=== PATIENT | male | born 1965 | race Caucasian/White ===

== ENCOUNTER 2022-03-29 09:30 | Outpatient (RCR) | payer BC, SELFPAY ==
--- NOTE | 2022-03-21 18:02 | HP.PTEVAL_ITS ---
Patient's Visit Information [address] is a 56 year old M referred to Physical Therapy by MALLY Fuentes with a diagnosis of R ankle sprain. Date of Evaluation: 03/21/22 Physical Therapist: Rosalio Aquino, PT, ATC - Visit Plan Frequency: 2-3x /Week Duration: 4-6 Weeks Plan: R ankle mobilizations, stretching anbd strengthening, balance and proprio, bike, and HEP - Subjective Pt reports he jumped out of the back of his truck and sprained his R ankle 3 days ago. Pt reports he jumped out onto a curb and inverted his ankle. Pt reports severe pain immediately. Pt reports he was unable to walk, but is doing much better today. Pt notes he has a lot of swelling abd discoloration present at this time. Pt reports since he had all the swelling, [facility] and received [facility] which revealed no fracture. 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 Pt reports he lives in a 2 story house, and has to negotiate the stairs one step at a time. Pt reports sleep difficulty at this time unless he takes pain meds. 3/10 pain while sitting here at rest, 7/10 pain at worst. - Pain R ankle Pain Intensity (Out of 10): 3 Pain Intensity Range: 7 - Objective Neuro: B LE sensation is WNL to light touch. B patellar reflex= 2/3. Girth at ankle: L ankle 57 cm, R ankle 60 cm. ROM: L ankle DF= 20, PF= 55; R ankle DF= 4, PF= 40. MMT: L ankle DF= 5, PF= 5, Ever= 5/5; R ankle DF= 4+/5, PF= 5/5, Ever= 3/5 - Balance/Special Test Scores Lower Extremity Functional Score: 29 - Goals Goal 1:: Decrease R ankle pain x 50% to aid with sleep Goal Time Frame: 4-6 Weeks Goal 2:: Increase R ankle DF ROM x 10 degrees to aid with restoring a more normalized gait pattern Goal Time Frame: 4-6 Weeks Goal 3:: Increase R ankle strength x 1 grade to aid with preventing future ankle sprains Goal Time Frame: 4-6 Weeks Goal 4:: I with HEP Goal Time Frame: 4-6 Weeks - Rehabilitation Potential Physical Therapy Diagnosis: Pt has R ankle pain, weakness, and limited ROM secondary to L ankle inversion ankle sprain Rehabilitation Potential: Good - Anticipated Interventions Patient/Client Instruction: Educate patient on: Condition, Plan of Care For the Purpose of:: To improve self management Therapeutic Exercise to Include: Strength training, Endurance training, Balance training, Flexibilty training, Gait and locomotor training, Passive ROM, Active ROM For the Purpose of:: To decrease pain, To increase ROM, To improve ability to perform ADL's IF ES: Yes Cryotherapy (ice pack, ice massage): Yes For the Purpose of:: To decrease pain Thank you for the opportunity to evaluate your patient. For Medicare and Medicare HMO plans, please review the plan of care and approve it. It will need to be FAXED BACK to us at [phone] for Medicare purposes. For Medicare only, by signing this I certify the plan of care. Please let me know if there are questions or concerns regarding this plan of care. Physician Signature: Date:
--- NOTE | 2022-07-11 17:10 | HP.PT.NRP ---
[address] was seen in my office for initial evaluation on 03/21/22. The following Plan of Care was established for this patient: Initial Frequency: 2-3x /Week Initial Duration: 4-6 Weeks Patient/Client Instruction: Educate patient on: Condition, Plan of Care For the Purpose of:: To improve self management Therapeutic Exercise to Include: Strength training, Endurance training, Balance training, Flexibilty training, Gait and locomotor training, Passive ROM, Active ROM For the Purpose of:: To decrease pain, To increase ROM, To improve ability to perform ADL's IF ES: Yes Cryotherapy (ice pack, ice massage): Yes For the Purpose of:: To decrease pain This patient was last seen in our office . Pertinent comments regarding their Physical therapy will appear below: Pt was treated for 3 PT visits for R ankle pain through the date of 03/29/22. Pt has not returned through todays date and is discontinued at this time. At this point I will be discontinuing this patient from physical therapy. I would be happy to see this patient again in the future if found appropriate by the physician. Thank you! Rosalio Aquino, PT, ATC Balance/Gait/Functional tests - Balance/Special Test Scores Lower Extremity Functional Score: 29
== END 2022-03-29 19:00 | disposition home or self-care (01) ==
LOC: PT 09:30
PROVIDERS: Referring Provider Physician Assistant; Visit Provider Physician Assistant
DX: S93.401D Sprain of unspecified ligament of right ankle, subsequent encounter (principal)
CPT/HCPCS: 97014; 97110; 97140; 97161; 97164; G0283

== ENCOUNTER 2023-12-22 07:33 | Day surgery (SDC) | payer BC, OTHER, SELFPAY ==
[2023-12-22] VITALS (7 sets, daily range): BP systolic 119–146; BP diastolic 81–95; PULSE 62–67; RESP 14–18; TEMP 36.2–36.7; O2SAT 96–100; BMI 27.5
--- NOTE | 2023-12-22 07:40 | PRE.ANES_ITS ---
ASA Classification* ASA Classification ASA Classification: 2 Assessment & Plan Anesthesia* Anesthesia Assessment Anesthesia Assessment: Discussed sedation and/or anesthesia options, risks, benefits, and alternatives with patient/parents/legal guardian/POA. Questions invited. The patient/parents/legal guardian/POA seems to understand and agrees to proceed with anesthesia plan. Reviewed the physical assessment, medical history, allergy history and patient home medications list prior to surgery/procedure/anesthetic and documented any changes. Performed airway and anesthesia risk assessments. 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 When Was Last Pacemaker Check QUESTION #4 FULL TEXT: You/Your Family Experience fever (hyperthermia) with Anesthesia Last Oral Intake Last Oral intake: Last Oral Intake NPO since Meds taken in AM with sips of water? Meds patient instructed to take am of surgery PONV PONV - wood milling machine hand: PONV - wood milling machine hand Female No 12/17/23 11:16 HX of Motion Sickness No 12/17/23 11:16 HX of N/V After Surgery No 12/17/23 11:16 Non-Smoker Yes 12/17/23 11:16 Duration of Surgery greater No 12/17/23 11:16 than 60 minutes Number of Risk Factors 1 12/17/23 11:16 PONV Score Low Risk 12/17/23 11:16 Height & Weight Height & Weight: Anesthesia: Height & Weight Height 5 ft 10 in 11/25/23 09:53 Respiratory Assessment Respiratory Assessment - wood milling machine hand: Respiratory Tract Infection Hx - wood milling machine hand Hx Respiratory Tract Infection No 12/17/23 11:16 STOP Sleep Apnea STOP Sleep Apnea - wood milling machine hand: STOP Sleep Apnea - wood milling machine hand Hx Hypertension No 12/17/23 11:16 Hx Sleep Apnea No 12/17/23 11:16 CPAP BIPAP Do you snore loudly (louder No 12/17/23 11:16 than talking or can be heard Do you often feel tired/ No 12/17/23 11:16 fatigued/ sleepy during daytime? Has anyone observed you stop No 12/17/23 11:16 breathing during sleep? STOP Results Negative 12/17/23 11:16 QUESTION #5 FULL TEXT : Do you snore loudly (louder than talking or can be heard through closed doors)? 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 Specify any problems Hx of Preganancy in last 3 N/A 12/17/23 11:16 Months Nurse Filling Out Transfusion VCHRISTIN 12/17/23 11:16 & Questions: Date: 12/17/23 12/17/23 11:16 Time: 11:17 12/17/23 11:16 Patient unable to answer at this time (ie. confused, unrespo /Reproduction History /Reproductive History - wood milling machine hand: /Reproductive Hx- wood milling machine hand Hx Now Gestational Age (in weeks): EDC: Hx Hx Para Hx Section SAB Active Medications Active Medications: Current Medications Generic Name Dose Route Start Last Admin Trade Name Freq PRN Reason Stop Dose Admin Lactated Ringer's 1,000 mls @ 15 mls/hr 12/22/23 07:45 IV .Q48H OZ PFSH Medical History Alcohol use Arthritis Injury of head and neck Blackout History of ulceration Former smoker Right ankle sprain Seasonal allergies Stomach ulcer Home Medications ?Medication ?Instructions ?Recorded ?Last Taken ?Type ascorbic acid (vitamin C) 500 mg 500 mg PO DAILY 10/23/23 Unknown History tablet kchvnmd-uhkmllsiiauyq-rtueyomt 250 1 tab PO Q4-6H PRN pain 10/23/23 Unknown History mg-250 mg-65 mg tablet (Excedrin Extra Strength) erollzhw-qcqdkueg-dimsw acid 400 1 tab PO DAILY 10/23/23 Unknown History mcg-vit K 20 mcg-lycop 300 mcg tablet (One-A-Day Men's Multivitamin) Allergy/AdvReac Type Severity Reaction Status Date / Time codeine Allergy Vomiting Verified 12/17/23 11:05 Environmental Allergies: Allergy Other Verified 12/17/23 11:05 Uncoded Family History Aunt Colon cancer Breast cancer Mother Diverticulitis Lung cancer Brother Diverticulitis Grandmother Brain cancer Uncle Prostate CA Other Cancer Surgical History Hx of oral surgery Social History household members: spouse current occupational status: employed Smoking Status: Former smoker alcohol intake: current alcohol intake frequency: a few times a month Alcohol type: beer substance use type: does not use Review of Systems (Anesthesia) ROS Narrative System reviewed and no additional complaints, except as documented.
[2023-12-22] MEDS: Lactated Ringers 1,000 ML 15 ML IV (07:58)
--- NOTE | 2023-12-22 08:01 | HP.PCM_ITS ---
[facility] - General General Date of Admission: 12/22/23 Date of Service: 12/22/23 Chief Complaint: Screening colonoscopy [facility] Narrative [address], is a 58 M who presents today for screening colonoscopy. He has no significant past medical history. He is not take any medicines on a daily basis. He does not have any chest pain or shortness of breath. He has not had a colonoscopy before. [facility] Medical History Alcohol use Arthritis Injury of head and neck Blackout History of ulceration Former smoker Right ankle sprain Seasonal allergies Stomach ulcer Home Medications ?Medication ?Instructions ?Recorded ?Last Taken ?Type ascorbic acid (vitamin C) 500 mg 500 mg PO DAILY 10/23/23 Unknown History tablet dijfotp-wwbugwmasxynf-vvomiljt 250 1 tab PO Q4-6H PRN pain 10/23/23 Unknown History mg-250 mg-65 mg tablet (Excedrin Extra Strength) aruqaipv-lejaxbdy-tsmry acid 400 1 tab PO DAILY 10/23/23 Unknown History mcg-vit K 20 mcg-lycop 300 mcg tablet (One-A-Day Men's Multivitamin) Allergy/AdvReac Type Severity Reaction Status Date / Time codeine Allergy Vomiting Verified 12/22/23 07:56 Environmental Allergies: Allergy Other Verified 12/22/23 07:56 Uncoded Family History Aunt Colon cancer Breast cancer Mother Diverticulitis Lung cancer Brother Diverticulitis Grandmother Brain cancer Uncle Prostate CA Other Cancer Surgical History Hx of oral surgery Social History household members: spouse current occupational status: employed Smoking Status: Former smoker alcohol intake: current alcohol intake frequency: a few times a month Alcohol type: beer substance use type: does not use ROS Review of Systems ROS Unobtainable: other Constitutional Constitutional: Denies fatigue, fever(s), poor appetite, weight gain or weight loss ENT HEENT: Denies mouth lesions Cardiovascular Cardiovascular: Denies abdominal bloating, abdominal edema or abdominal pain Respiratory/Chest Respiratory/Chest: Denies change in mental status, change in phlegm color, chest congestion or chest tightness Gastrointestinal Gastrointestinal: Denies belching, bloating, change in bowel habits, change in stool character, chewing difficulty, coffee ground emesis, constipation, cramping, diarrhea, dyspepsia, dysphagia, early satiety, excessive flatus, fecal incontinence, heartburn, hematemesis, hematochezia, hemorrhoids, loose stools, melena, nausea, odynophagia, rectal bleeding, tenesmus, vomiting or weight changes Genitourinary Genitourinary: Denies abdominal discomfort, burning urination or itching Musculoskeletal Musculoskeletal: Reports as per HPI; Denies muscle weakness or myalgias Integumentary Integumentary: Denies jaundice Neurologic Neurologic: Denies lack of coordination or weakness Psychiatric Psychiatric: Denies confusion, depression, memory loss, mood swings, paranoia or suicidal ideation Endocrine Endocrinology: Denies systems reviewed and no addt'l complaints, except as documented Hematologic/Lymphatic Hematologic/Lymphatic: Denies anemia, easy bleeding, easy bruising or lymphadenopathy Allergic/Immunologic Allergic/Immunologic: Denies systems reviewed and no addt'l complaints, except as documented Physical Exam Const alert General Appearance: cooperative Orientation / Consciousness: oriented to person HEENT hearing grossly normal bilaterally Head and Scalp: normal to inspection Face and Sinus: face symmetric Nose: external nose normal Mouth: oral and palatal mucosa normal Eyes conjunctivae normal General Eye: normal appearance of both eyes Neck full ROM General: normal visual inspection Lymph Lymphatic: no lymphadenopathy noted Chest inspection of chest normal and palpation of chest normal Chest: symmetrical chest wall rise Resp normal respiratory effort Effort and Inspection: able to speak in complete sentences Cardio regular rate GI non-distended Percussion: normal to percussion Rectal Exam: deferred Neuro Speech: speech normal Gait (Neuro): normal gait Assessment & Plan Assessment/Plan (1) Encounter for screening for malignant neoplasm of colon: PLAN: Who was explained alternatives, risk, benefits include not withstanding bleeding, infection, sepsis, perforation, need for more charge and . He will have an ASA of 3.
--- NOTE | 2023-12-22 08:30 | COLBX_PTH ---
PATIENT: [address]OR[address]RE[address] LOC: EN U#:[id number] AGE/SX: 58/M ROOM: RE12/22/[address]: Dr. Allan Faust DO : 1965 BED: DIS: 12/22/2023 SPEC #: [id number] RECD: 12/22/23 10:36 STATUS: LASHA REFrancy #: [id number] FER: 12/22/23 08:[address]: Allan Faust DEPT: SURGICAL PATHOLOGY RECD BY: Kelsey Donato ENTERED: 12/22/23 12:23 SP TYPE: COLON BX IRINEO DR: Dr. Peter Burris MD Tissues: A - COLON BIOPSY B - Sigmoid colon biopsy Procedures: Surgery Specimen Level IV HEADER OPERATION: Colonoscopy PRE-OP DIAGNOSIS: Encounter for screening for malignant neoplasm of colon TISSUE SUBMITTED: A- Hepatic flexure biopsy, B- Sigmoid colon biopsy MICROSCOPIC DIAGNOSIS A. Hepatic flexure, biopsy: Tubular adenoma. B. Sigmoid colon, biopsy: Hyperplastic polyp. TENZIN. 12/23/2023 MICROSCOPIC DESCRIPTION Slides are reviewed. GROSS DESCRIPTION A. Received in fixative is one container labeled with the patient's name and designated Hepatic flexure biopsy. The specimen consists of one irregular fragment of light wood soft tissue that measures 0.3 x 0.3 x 0.1 cm. The specimen is totally submitted in one cassette. B. Received in fixative is one container labeled with the patient's name and designated Sigmoid colon biopsy. The specimen consists of one irregular fragment of light wood soft tissue that measures 0.4 x 0.3 x 0.1 cm. The specimen is totally submitted in one cassette. 12/22/2023 TC:1 CPT:01541p9
--- NOTE | 2023-12-22 09:00 | OP.COLON_ITS ---
Patient Name: Kb Ponce Procedure Date: 12/22/2023 8:30 AM Date of : 1965 Age: 58 Procedure: Colonoscopy Indications: Screening for colorectal malignant neoplasm Providers: Allan Faust DO Referring MD: Peter Burris MD Medicines: Monitored Anesthesia Care Patient Profile: This is a 58 year old male. Refer to note in patient chart for documentation of history and physical. Last Colonoscopy: none. The patient's first colonoscopy is today. Complications: No immediate complications. Procedure: Pre-Anesthesia Assessment: - Prior to the procedure, a History and Physical was performed, and patient medications and allergies were reviewed. The patient is competent. The risks and benefits of the procedure and the sedation options and risks were discussed with the patient. All questions were answered and informed consent was obtained. Patient identification and proposed procedure were verified by the physician in the pre-procedure area. Mental Status Examination: alert and oriented. Airway Examination: normal oropharyngeal airway and neck mobility. Respiratory Examination: clear to auscultation. CV Examination: normal. Prophylactic Antibiotics: The patient does not require prophylactic antibiotics. Prior Anticoagulants: The patient has taken no anticoagulant or antiplatelet agents except for NSAID medication. ASA Grade Assessment: II - A patient with mild systemic disease. After reviewing the risks and benefits, the patient was deemed in satisfactory condition to undergo the procedure. The anesthesia plan was to use monitored anesthesia care (MAC). Immediately prior to administration of medications, the patient was re-assessed for adequacy to receive sedatives. The heart rate, respiratory rate, oxygen saturations, blood pressure, adequacy of pulmonary ventilation, and response to care were monitored throughout the procedure. The physical status of the patient was re-assessed after the procedure. After I obtained informed consent, the scope was passed under direct vision. Throughout the procedure, the patient's blood pressure, pulse, and oxygen saturations were monitored continuously. The Colonoscope was introduced through the anus and advanced to the cecum, identified by appendiceal orifice and ileocecal valve. The colonoscopy was performed without difficulty. The patient tolerated the procedure well. The quality of the bowel preparation was adequate. Scope In: 8:43:28 AM Scope Withdrawal Time 0 hours 8 minutes 22 seconds Scope Out: 8:54:16 AM Total Procedure Duration Time 0 hours 10 minutes 48 seconds Findings: The perianal and digital rectal examinations were normal. Two sessile polyps were found in the sigmoid colon and hepatic flexure. The polyps were 5 mm in size. These polyps were removed with a jumbo cold forceps. Resection and retrieval were complete. Verification of patient identification for the specimen was done. Estimated blood loss was minimal. Multiple small-mouthed diverticula were found in the recto-sigmoid colon, sigmoid colon and descending colon. The exam was otherwise without abnormality on direct and retroflexion views. Impression: - Two 5 mm polyps in the sigmoid colon and at the hepatic flexure, removed with a jumbo cold forceps. Resected and retrieved. - Diverticulosis in the recto-sigmoid colon, in the sigmoid colon and in the descending colon. - The examination was otherwise normal on direct and retroflexion views. Recommendation: - Discharge patient to home. - Resume previous diet. - Continue present medications. - Await pathology results. - Repeat colonoscopy in 5 years for surveillance. Procedure Code(s): --- Professional --- 03974, Colonoscopy, flexible; with biopsy, single or multiple CPT copyright 2021 [employer]. All rights reserved. The codes documented in this report are preliminary and upon direct sales representative review may be revised to meet current compliance requirements. Allan Faust DO 12/22/2023 8:59:53 AM This report has been signed electronically. Number of Addenda: 0 Note Initiated On: 12/22/2023 8:30 AM
--- NOTE | 2023-12-22 09:01 | OP.CCLET_ITS ---
12/22/2023 Peter Burris MD [address] [place] [address] [place] [address] Re : Colonoscopy procedure for Kb Grangerprachi Dear Dr. Burris This procedure was performed on Friday, December 22, 2023. My impressions and recommendations are as follows: Impressions : - Two 5 mm polyps in the sigmoid colon and at the hepatic flexure, removed with a jumbo cold forceps. Resected and retrieved. - Diverticulosis in the recto-sigmoid colon, in the sigmoid colon and in the descending colon. - The examination was otherwise normal on direct and retroflexion views. Recommendations : - Discharge patient to home. - Resume previous diet. - Continue present medications. - Await pathology results. - Repeat colonoscopy in 5 years for surveillance. My findings are described in the full procedure note, which is enclosed. If I can be of further assistance, please feel free to contact me at . Sincerely, Allan Faust, 12/22/2023 8:59:53 AM This report has been signed electronically.
--- NOTE | 2023-12-22 09:03 | PCM.POST.ANE ---
Anesthesia: Postop Eval I Current Vital Signs Temperature: 97.3 F Pulse Rate: 67 Blood Pressure: 120/81 Respiratory Rate: 14 Pulse Ox: 97 Oxygen Delivery Method: Room Air Assessment Airway patent: Yes Spontaneous unlabored respirations: Yes Mental status: Asleep nausea: No Vomiting: No Anesthesia Complication: No Fluid Hydration Crystalloid volume administer (ml): 600 Total IV fluid infused: 600 Progress Note Anesthesia document: Postop Eval 1 completed: Yes
--- NOTE | 2023-12-22 09:22 | PCM.POSTANE2 ---
Anesthesia Postop Eval I Sum Postop Eval Completion status Anesthesia document: Postop Eval 1 completed: Yes Anesthesia Postop Eval I Summary Anesthesia Postop Eval I Summary: Anesthesia Postop Eval I: Assessment Summary Airway patent Yes 12/22/23 09:04 [email or web address] Spontaneous unlabored Yes 12/22/23 09:04 [email or web address] respirations Mental status Asleep 12/22/23 09:04 [email or web address] nausea No 12/22/23 09:04 [email or web address] Vomiting No 12/22/23 09:04 [email or web address] Anesthesia Postop Eval I: Fluid Summary Crystalloid volume administer 600 12/22/23 09:04 [email or web address] (ml) Colloids volume administered ( ml) Blood Product volume administered (ml) Total IV fluid infused 600 12/22/23 09:04 [email or web address] Anesthesia Postop Eval I: Summary Notes Anesthesia Complication No 12/22/23 09:04 [email or web address] Anesthesia Complication Comment: Post-operative progress note Anesthesia: Postop Eval II Evaluation Mental status: Awake Pain Level: 0 nausea: No Vomiting: No
== END 2023-12-22 10:13 | disposition home or self-care (01) ==
LOC: EN 07:35 → AC 07:37
PROVIDERS: PCP Internal Medicine; Referring Provider Internal Medicine; Visit Provider Internal Medicine Gastroenterology
PROC: 0DJD8ZZ Inspection of Lower Intestinal Tract, Via Natural or Artificial Opening Endoscopic (ICD-10-PCS; CPT 45378; principal; 2023-12-22 08:25)
DX: Z12.11 Encounter for screening for malignant neoplasm of colon (principal); Z80.0 Family history of malignant neoplasm of digestive organs; Z87.891 Personal history of nicotine dependence; K57.30 Diverticulosis of large intestine without perforation or abscess without bleeding; D12.3 Benign neoplasm of transverse colon
CPT/HCPCS: 45380; 88305; J7120; J2405

== ENCOUNTER → 2024-01-19 | Outpatient (CLI) | payer BC, OTHER, SELFPAY ==
[2024-01-19 15:27] LABS: PSA,Total - Annual Screen 2.86 ng/mL (0.00-4.00)
== END | disposition home or self-care (01) ==
LOC: LAB 14:32
PROVIDERS: PCP Internal Medicine; Referring Provider Urology; Visit Provider Urology
DX: Z12.5 Encounter for screening for malignant neoplasm of prostate (principal)
CPT/HCPCS: 36415; 84153; G0103

== ENCOUNTER → 2024-01-30 | Outpatient (CLI) | payer BC, OTHER, SELFPAY ==
[2024-01-30 15:06] LABS: Absolute Lymphocyte Count 1.27 X10^3/uL (0.83-4.51); Absolute Neutrophil Count 4.3 X10^3/uL (2.0-7.7); Basophil# 0.03 X10^3/uL; Basophil% 0.5 % (0-1); Eosinophil# 0.05 X10^3/uL; Eosinophils% 0.8 % (0-5); Hematocrit 48.7 % (40-54); Hemoglobin 16.9 g/dL (13.0-16.5); Lymphocyte # 1.27 X10^3/ul (0.83-4.51); Lymphocyte % 20.8 % (19-41); Mean Corp Hgb Conc 34.7 g/dL (32-36); Mean Corpuscular Hgb 29.1 pg (27.0-32.0); Mean Platelet Vol. 9.4 fl (6.2-12.0); Monocyte# 0.47 X10^3/uL; Monocyte% 7.7 % (0-10); NRBC Flagged by Analyzer 0 % (0-5); Neutrophil # 4.27 X10^3/uL (2.7-7.7); Neutrophil % 69.7 % (47-70); Platelet Count 213 K/mm3 (150-450); RBC Distribution Width CV 12.4 % (11.6-14.6); White Blood Count 6.1 K/mm3 (4.4-11.0)
[2024-01-30 15:26] LABS: ALB/GLOB Ratio 1.2 RATIO (0.9-2.4); AST(SGOT) 26 U/L (15-37); Alanine Aminotransfer ALT/SGPT 49 U/L (16-61); Albumin, Serum 4.2 g/dL (3.2-5.0); Alkaline Phosphatase 62 U/L (45-117); Anion Gap 3 (5-15); BUN 11 mg/dL (7-18); BUN/Creat Ratio 11.6 RATIO (10-20); Calcium,Total 9.4 mg/dL (8.5-10.1); Chloride 104 mmol/L (98-107); Cholesterol 148 mg/dL (200); Creatinine, Serum 0.95 mg/dL (0.70-1.30); EST Glomerular Filtration Rate 87 mL/min (>60); Est Glom Filt Rate - Afr Amer 105 mL/min (>60); Globulin 3.5 g/dL (2.2-4.2); Glucose 101 mg/dL (74-106); High Density Lipoprotein 57 mg/dL; Potassium 4.8 mmol/L (3.5-5.1); Protein, Total 7.7 g/dL (6.4-8.2); Sodium Level 137 mmol/L (136-145); Triglycerides 61 mg/dL; Very Low Density Lipoprotein 12 mg/dL (5-40)
== END | disposition home or self-care (01) ==
LOC: BIMLAB 13:42
PROVIDERS: PCP Internal Medicine; Referring Provider Internal Medicine; Visit Provider Internal Medicine
DX: Z00.00 Encounter for general adult medical examination without abnormal findings (principal)
CPT/HCPCS: 36415; 80053; 80061; 85025

== ENCOUNTER → 2025-01-14 | Outpatient (CLI) | payer BC, OTHER, SELFPAY ==
--- OUTSIDE RECORDS SUMMARY | 2025-01-14 12:35 | XMS RPT_ITS | CCD ---
Author Organization [facility] Informat ion Partnership [facility] Care Team Providers Care Customer Advocacy Manager Name Role Phone Porfirio Freitas Unavailable Friend, Allan Consulting Unavailable Oleghe, Efewongbe Primary Care Unavailable Friend, Allan Attending Unavailable Oleghe, Efewongbe Referring Unavailable Oleghe, Efewongbe Primary Care Unavailable Friend, Allan Attending Unavailable Oleghe, Efewongbe Referring Unavailable CesarLion Attending Unavailable Cesar, Lion Rossi Referring Unavailable Oleghe, Efewongbe Primary Care Unavailable Oleghe, Efewongbe Attending Unavailable Oleghe, Efewongbe Referring Unavailable Oleghe, Efewongbe Primary Care Unavailable Oleghe, Efewongbe Primary Care Unavailable Oleghe, Efewongbe Attending Unavailable Oleghe, Efewongbe Referring Unavailable Oleghe, Efewongbe Attending Unavailable Oleghe, Efewongbe Referring Unavailable Oleghe, Efewongbe Primary Care Unavailable Oleghe, Efewongbe Primary Care Unavailable Donna Perdomo Attending Unavailable Allergies Allergy Classification Reported Allergen(s) Allergy Type Date of Onset Reaction(s) Facility (2 sources) MOLD/DUST; Translations: [MOLD/DUST] allergy to substance 7 [facility] Work Phone: (1 source) Codeine Drug Allergy 5 [facility] Repository (1 source) Environmental Allergies: Uncoded; Translations: [Environmental Allergies: Uncoded] Propensity to adverse reactions (disorder) 5 [facility] Repository Medications Completed/Discontinued Medications Medication Drug Class(es) Dates Sig (Normalized) Sig (Original) ACETAMINOPHEN TABS (2 sources) Start: 01-31-2017 TYLENOL TABS as directed ACETAMINOPHEN TABS [id number] Porfirio BAL amoxicillin 500 mg oral tablet (2 sources) Penicillin-class Antibacterial Start: 01-31-2017 End: 02-10-2017 AMOXICILLIN 500 MG TABS Take one tab every 12 hours AMOXICILLIN [id number] Porfirio BAL Problems Problem Classification Problem Date Documented Da te Episodic/Chronic Other screening for suspected conditions (not mental disorders or infectious disease) (3 sources) Encounter for screening for malignant neoplasm of prostate; Translations: [Encounter for screening for malignant neoplasm of colon] Onset: 12-29-2023 Episodic Other upper respiratory infections (2 sources) Pharyngitis; Translations: [Acute pharyngitis, unspecified] Onset: 01-31-2017 01-31-2017 Episodic Otitis media and related conditions (2 sources) Otitis media; Translations: [Otitis media, unspecified, left ear] Onset: 01-31-2017 01-31-2017 Episodic Results Test Name Value Interpretation Reference Range Facility Internal Medicine Office Vis fritz 07-16-2024 Internal Medicine Office Visit [facility] [address] [place] [address] OFFICE VISIT Date of Service: 07/16/24 MR#: [id number] Acct: [id number] Name: KB PONCE Rep #: [id number] : 1965 Provider: Dr. Peter chauhan MD Age/Sex: 58/M Location: [facility] [place].[facility] Status: Signed Intake Vital Signs 01/30/24 13:13 07/16/24 09:19 Height 5 ft 10 in 5 ft 10 in Weight: 196 lb 4 oz BMI 28.1 BP 132/78 H Blood Pressure Location Lt brachial Position Sitting Respiration 14 Pulse 73 Pulse Source Monitor Temp 96 F L Temp Source Temporal Pulse Oximetry (%) 95 Oxygen Delivery Method room air Intake Visit Reasons: 3 M FU Chief Complaint: fu Support Teacher Required: No Accompanied by: Self Is patient in pain?: No Allergies codeine Allergy (Verified 07/16/24 09:17) Vomiting Environmental Allergies: Uncoded Allergy (Verified 07/16/24 09:17) Other Medications ???Medication ???Instructions ???Recorded ???Confirmed ???Type ascorbic acid (vitamin C) 500 mg 500 mg PO DAILY 10/23/23 07/16/24 History tablet aspirin-acetaminoph en-caffeine 250 1 tab PO Q4-6H PRN pain 10/23/23 07/16/24 History mg-250 mg-65 mg tablet (Excedrin Extra Strength) fehmywvt-vphcihqj-w olic acid 400 1 tab PO DAILY 10/23/23 07/16/24 H istory mcg-vit K 20 mcg-lycop 300 mcg tablet (One-A-Day Men's Multivitamin) FLAX SEED PO DAILY 01/30/24 07/16/24 History tadalafil 5 mg tablet (Cialis) 5 mg PO QDAY 01/30/24 07/16/24 His tory Have you fallen in the past year?: No PFSH Medical History Hypertension Encounter to establish care Preventative health care History of prostate disorder Pneumonia Chronic headaches Alcohol use Arthritis Injury of head and neck Blackout History of ulceration Former smoker Right ankle sprain Seasonal allergies Stomach ulcer Surgical History Hx of oral surgery Family History Aunt Colon cancer Breast cancer Cancer Mother Diverticulitis Lung cancer Anemia Anxiety Depression Heart disease Hypertension Mental disorder Psychiatric care Respiratory disease Seizures Suicide attempt Peptic ulcer disease Cancer Brother Diverticulitis Asthma Diabetes Grandmother Brain cancer Uncle Prostate CA Cancer Grandfather Alcoholism Cancer Social History household members: spouse current occupational status: employed Smoking Status: Former smoker alcohol intake: current alcohol intake frequency: a few times a month Alcohol type: beer substance use type: does not use what type of physical activity do you participate in: walking seatbelt use: always do you feel safe at home: Yes HPI HPI Chief Complaint: fu Details: KB PONCE, is a 58 M who presents to the office today for follow-up of hypertension. No acute concerns at this time. Blood pressure in office at 132/70 however, he states that he checks his readings at least weekly and his readings are on average around 130/90. Stays very active. Has made dietary changes. Feels well otherwise. ROS Const Constitutional: No body ache, excessive sweating, fatigue, fever(s), frequent falls, headache(s), snoring, weakness, weight change, sleep problems or change in appetite Eyes Eyes: No blurry vision, change in vision, floaters, visual disturbances, eye pain or Light sensitivity ENT ENT: No abnormal hearing, ear or mastoid pain, tinnitus, balance problems, nosebleed/epistaxis , nasal congestion, headache(s), neck pain or sore throat Resp Respiratory: No cough, excessive phlegm production, pain on inspiration, shortness of breath, snoring or wheezing Cardio Cardiology: No chest pain at rest, chest pain with exertion, excessive sweating, shortness of breath, dyspnea on exertion, lightheadedness, orthopnea or palpitations Gastro GI: No abdominal pain, change in bowel habits, constipation, cramping, diarrhea, nausea/dyspepsia or vomiting Genitourinary Male: No burning urination, painful urination, urinary incontinence, urinary frequency or blood in urine Musc Musculoskeletal: No abnormal gait, joint pain, back pain, limited range of motion, neck pain, numbness, stiffness, tingling or Arthritis Skin Skin: No dry skin, redness, excessive hair growth, yellowing of the eye, lesions, itchy eyes, rash or wounds Neuro Neurology: No abnormal gait, abnormal hearing, abnormal speech, dizziness, weakness, frequent falls, headache(s), memory loss, numbness, tingling or visual disturbances Psych Psychiatric: No anxiety, No change in appetite, No depression, No memory loss and No Thoughts of harmi (more content not included)... Normal [facility] CBC W/Diff, Automatedon 11-0 Absolute Lymph 1.27 X10 3/uL Normal 0.83-4.51 [facility] Comment on above: Performed By: #### L 100.0100, L500.4050, L500.4100 #### [facility] [address] [place], [place], [id number] Absolute Neut 4.3 X10 3/uL Normal 2.0-7.7 [facility] Comment on above: Performed By: #### L 100.0100, L500.4050, L500.4100 #### [facility] [address], [address] Basophils/100 WBC (Bld) 0.5 % Normal 0-1 [facility] Comment on above: Performed By: #### L 100.0100, L500.4050, L500.4100 #### [facility] [address] [place], [address] Eosinophils/100 WBC (Bld) 0.8 % Normal 0-5 [facility] Comment on above: Performed By: #### L 100.0100, L500.4050, L500.4100 #### [facility] [address] [place], [address] Erythrocyte distribution width (RBC) [Ratio] 12.4 % Normal 11.6-14.6 [facility] Comment on above: Performed By: #### L 100.0100, L500.4050, L500.4100 #### [facility] [address] [place], [address] Hematocrit (Bld) [Volume fraction] 48.7 % Normal 40-54 [facility] Comment on above: Performed By: #### L 100.0100, L500.4050, L500.4100 #### [facility] [address] [place], [address] Hemoglobin (Bld) [Mass/Vol] 16.9 g/dL High 13.0-16.5 [facility] Comment on above: Performed By: #### L 100.0100, L500.4050, L500.4100 #### [facility] [address] [place], [address] IG% 0.500 Normal 0.0-0.9 [facility] Comment on above: Result Comment: IG% - Immature Granulocytes (promyelocytes, myelocytes and metamyelocytes) > 1% indicates that a LEFT SHIFT is Present. Performed By: #### L 100.0100, L500.4050, L500.4100 #### [facility] [address] [place], [address] Lymphocytes/100 WBC (Bld) 20.8 % Normal 19-41 [facility] Comment on above: Performed By: #### L 100.0100, L500.4050, L500.4100 #### [facility] [address] [place], [address] MCH (RBC) [Entitic mass] 29.1 pg Normal 27.0-32.0 [facility] Comment on above: Performed By: #### L 100.0100, L500.4050, L500.4100 #### [facility] [address] [place] [place], [address] MCHC (RBC) [Mass/Vol] 34.7 g/dL Normal 32-36 [facility] Comment on above: Performed By: #### L 100.0100, L500.4050, L500.4100 #### [facility] [address] [place], [address] MCV (RBC) [Entitic vol] 84.0 fL Normal 80-94 [facility] Comment on above: Performed By: #### L 100.0100, L500.4050, L500.4100 #### [facility] [address] [place], [address] Monocytes/100 WBC (Bld) 7.7 % Normal 0-10 [facility] Comment on above: Performed By: #### L 100.0100, L500.4050, L500.4100 #### [facility] [address] [place], [address] Neutrophils/100 WBC (Bld) 69.7 % Normal 47-70 [facility] Comment on above: Performed By: #### L 100.0100, L500.4050, L500.4100 #### [facility] [address] [place], [address] Nucleated RBC (Bld) [#/Vol] 0 10*3/uL Normal 0-5 [facility] Comment on above: Performed By: #### L 100.0100, L500.4050, L500.4100 #### [facility] [address] [place], [address] Platelet mean volume (Bld) [Entitic vol] 9.4 fL Normal 6.2-12.0 [facility] Comment on above: Performed By: #### L 100.0100, L500.4050, L500.4100 #### [facility] [address] [place], [address] Platelets (Bld) [#/Vol] 213 10*3/uL Normal 150-450 [facility] Comment on above: Performed By: #### L 100.0100, L500.4050, L500.4100 #### [facility] [address] [place], [address] RBC (Bld) [#/Vol] 5.80 10*6/uL Normal 4.6-6.2 [facility] Comment on above: Performed By: #### L 100.0100, L500.4050, L500.4100 #### [facility] [address] [place], [address] RDW SD 37.0 fl Normal 35.1-43.9 [facility] Comment on above: Performed By: #### L 100.0100, L500.4050, L500.4100 #### [facility] [address] [place], [address] WBC (Bld) [#/Vol] 6.1 10*3/uL Normal 4.4-11.0 [facility] Comment on above: Performed By: #### L 100.0100, L500.4050, L500.4100 #### [facility] [address] [place], [address] Comprehensive Metabolic Prof melony 01-30-2024 Albumin [Mass/Vol] 4.2 g/dL Normal 3.2-5.0 [facility] Comment on above: Performed By: #### L 100.0100, L500.4050, L500.4100 #### [facility] [address] [place], [address] Albumin/Globulin [Mass ratio] 1.2 {ratio} Normal 0.9-2.4 [facility] Comment on above: Performed By: #### L 100.0100, L500.4050, L500.4100 #### [facility] [address] [place], [address] ALK P 62 U/L Normal 45-117 [facility] Comment on above: Performed By: #### L 100.0100, L500.4050, L500.4100 #### [facility] [address] [place], [address] ALT [Catalytic activity/Vol] 49 U/L Normal 16-61 [facility] Comment on above: Performed By: #### L 100.0100, L500.4050, L500.4100 #### [facility] [address] [place], [address] AST [Catalytic activity/Vol] 26 U/L Normal 15-37 [facility] Comment on above: Performed By: #### L 100.0100, L500.4050, L500.4100 #### [facility] [address] [place], [address] Bilirubin [Mass/Vol] 1.00 mg/dL Normal 0.20-1.00 [facility] Comment on above: Result Comment: For patients on eltrombopag therapy, use of Dimension [place] TBIL is not recommended. Performed By: #### L 100.0100, L500.4050, L500.4100 #### [facility] [address] [place], [address] BUN/CRE 11.6 RATIO Normal 10-20 [facility] Comment on above: Performed By: #### L 100.0100, L500.4050, L500.4100 #### [facility] [address] [place], [address] CA,Total 9.4 mg/dL Normal 8.5-10.1 [facility] Comment on above: Performed By: #### L 100.0100, L500.4050, L500.4100 #### [facility] [address] [place], [address] Chloride [Moles/Vol] 104 mmol/L Normal 98-107 [facility] Comment on above: Performed By: #### L 100.0100, L500.4050, L500.4100 #### [facility] [address] [place], [address] CO2 [Moles/Vol] 30.0 mmol/L Normal 21.0-32.0 [facility] Comment on above: Performed By: #### L 100.0100, L500.4050, L500.4100 #### [facility] [address] [place], [address] Creatinine [Mass/Vol] 0.95 mg/dL Normal 0.70-1.30 [facility] Comment on above: Result Comment: The validity of the calculated GFR GFRAA in patients over 70 years has not been determined. Clinical correlation is essential. Performed By: #### L 100.0100, L500.4050, L500.4100 #### [facility] [address] [place], [address] EST GFR - AA 105 mL/min Normal >60 [facility] Comment on above: Result Comment: Afri can [place]raini GFR Calc Performed By: #### L 100.0100, L500.4050, L500.4100 #### [facility] [address] [place], [address] GAP 3 Low 5-15 [facility] Comment on above: Performed By: #### L 100.0100, L500.4050, L500.4100 #### [facility] [address] [place], [address] GFR/1.73 sq M.predicted among non-blacks MDRD (S/P/Bld) [Vol rate/Area] 87 mL/min/{1.73_m2} Normal >60 [facility] Comment on above: Result Comment: Non- GFR Calc Performed By: #### L 100.0100, L500.4050, L500.4100 #### [facility] [address] [place], [address] Globulin (S) [Mass/Vol] 3.5 g/dL Normal 2.2-4.2 [facility] Comment on above: Performed By: #### L 100.0100, L500.4050, L500.4100 #### [facility] [address] [place], [address] Glucose [Mass/Vol] 101 mg/dL Normal 74-106 [facility] Comment on above: Result Comment: Fast ing Glucose result from 100 to 125 mg/dL suggests IMPAIRED HOMEOSTASIS per A.D.A. criteria. Performed By: #### L 100.0100, L500.4050, L500.4100 #### [facility] [address] [place], [address] Potassium [Moles/Vol] 4.8 mmol/L Normal 3.5-5.1 [facility] Comment on above: Performed By: #### L 100.0100, L500.4050, L500.4100 #### [facility] [address] [place], [address] Sodium [Moles/Vol] 137 mmol/L Normal 136-145 [facility] Comment on above: Performed By: #### L 100.0100, L500.4050, L500.4100 #### [facility] [address] [place], [address] T PROT 7.7 g/dL Normal 6.4-8.2 [facility] Comment on above: Performed By: #### L 100.0100, L500.4050, L500.4100 #### [facility] [address] [place], [address] Urea nitrogen [Mass/Vol] 11 mg/dL Normal 7-18 [facility] Comment on above: Performed By: #### L 100.0100, L500.4050, L500.4100 #### [facility] [address] [place], [address] Internal Medicine Office Vis itophilomena 01-30-2024 Internal Medicine Office Visit [facility] [address] [place] [address] [place] [address] OFFICE VISIT Date of Service: 01/30/24 MR#: [id number] Acct: [id number] Name: KB PONCE Rep #: [id number] : 1965 Provider: Dr. 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 Is patient in pain?: Yes (BILATERAL THUMB ) Pain scale (1-10): 1 Allergies codeine Allergy (Verified 01/30/24 13:05) Vomiting Environmental Allergies: Uncoded Allergy (Verified 01/30/24 13:05) Other Medications ???Medication ???Instructions ???Recorded ???Confirmed ???Type ascorbic acid (vitamin C) 500 mg 500 mg PO DAILY 10/23/23 01/30/24 History tablet aspirin-acetaminoph en-caffeine 250 1 tab PO Q4-6H PRN pain 10/23/23 01/30/24 History mg-250 mg-65 mg tablet (Excedrin Extra Strength) baajiizg-qkcivmtx-l olic acid 400 1 tab PO DAILY 10/23/23 01/30/24 History mcg-vit K 20 mcg-lycop 300 mcg tablet (One-A-Day Men's Multivitamin) FLAX SEED PO DAILY 01/30/24 History tadalafil 5 mg tablet (Cialis) 5 mg PO QDAY 01/30/24 01/30/24 History PFSH Medical History (Updated 01/30/24 @ 13:[address] Peter Burris MD) Hypertension Encounter to establish care Preventative health care History of prostate disorder Pneumonia Chronic headaches Alcohol use Arthritis Injury of head and neck Blackout History of ulceration Former smoker Right ankle sprain Seasonal allergies Stomach ulcer Surgical History Hx of oral surgery Family History (Updated 01/30/24 @ 13:00 by Zuleika Shay) Aunt Colon cancer Breast cancer Cancer Mother Diverticulitis Lung cancer Anemia Anxiety Depression Heart disease Hypertension Mental disorder Psychiatric care Respiratory disease Seizures Suicide attempt Peptic ulcer disease Cancer Brother Diverticulitis Asthma Diabetes Grandmother Brain cancer Uncle Prostate CA Cancer Grandfather Alcoholism Cancer Social History (Updated 01/30/24 @ 13:13 by Zuleika Shay) household members: spouse current occupational status: employed Smoking Status: Former smoker alcohol intake: current alcohol intake frequency: a few times a month Alcohol type: beer substance use type: does not use what type of physical activity do you participate in: walking seatbelt use: always do you feel safe at home: Yes HPI HPI 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 No acute concerns at this time. Chronically elevated blood pressure. Initial diagnosis was a few years ago during a period of nasty divorce however he made significant dietary and lifestyle changes with improvement in his numbers. Lately, he notes that his readings have been elevated again. Positive family history of hypertension in his mother. Prior tobacco use but he quit in 2005. Recently had a colonoscopy and due to polyps, 5-year follow-up was recommended. Also recently seen by urology where he had a PSA checked done which came back within normal range. No urinary concerns reported at this time. Does not typically get the flu shot. 11-year smoking history. less than a 1 pack a day. ROS Const Constitutional: No body ache, chills, excessive sweating, fatigue, fever(s), frequent falls, headache(s), snoring, weakness, sleep problems or change in appetite Eyes Eyes: No blurry vision, change in vision, bulging eyes, floaters, visual disturbances or Light sensitivity ENT ENT: No abnormal hearing, ear or mastoid pain, tinnitus, balance problems, nosebleed/epistaxis , nasal congestion, nasal discharge, headache(s), neck pain or sore throat Resp Respiratory: No cough, excessive phlegm production, pain on inspiration, shortness of breath, snoring or wheezing Cardio Cardiology: No chest pain at rest, chest pain with exertion, excessive sweating, shortness of breath, dyspnea on exertion, lightheadedness, orthopnea or palpitations Gastro GI: No abdominal pain, change in bowel habits, constipation, cramping, diarrhea or nausea/dyspepsia Genitourinary Male: No burning urination, painful urination, urinary incontinence, urinary frequency, suprapubic fullness or side pain Musc Musculoskeletal: No abnormal gait, joint pain, back pain, levin (more content not included)... Normal [facility] Lipid Profileon 01-30-2024 Cholesterol [Mass/Vol] 148 mg/dL Normal 200 [facility] Comment on above: Result Comment: <200 mg/dL Desirable 200-240 mg/dL Borderline >240 mg/dL High Risk Performed By: #### L 100.0100, L500.4050, L500.4100 #### [facility] [place], [address] Cholesterol in HDL [Mass/Vol] 57 mg/dL Normal [facility] Comment on above: Result Comment: The drugs N-Acetylcysteine and Metamizole may falsely depress this assay. Reference Range HDL <40 mg/dL Low HDL Cholesterol HDL >or= 60 mg/dL High HDL Cholesterol Performed By: #### L 100.0100, L500.4050, L500.4100 #### [facility] [address] [place], [address] Cholesterol in LDL [Mass/Vol] 79 mg/dL Normal 0-130 [facility] Comment on above: Performed By: #### L 100.0100, L500.4050, L500.4100 #### [facility] [address] [place], [address] Cholesterol in VLDL [Mass/Vol] 12 mg/dL Normal 5-40 [facility] Comment on above: Performed By: #### L 100.0100, L500.4050, L500.4100 #### [facility] [address] [place], [address] Triglyceride [Mass/Vol] 61 mg/dL Normal [facility] Comment on above: Result Comment: The drugs N-Acetylcysteine and Metamizole may falsely depress this assay. Serum Triglycerides Reference Interval Normal <150 mg/dL Borderline high 150 - 199 mg/dL High 200 - 499 mg/dL Very High > or = 500 mg/dL Performed By: #### L 100.0100, L500.4050, L500.4100 #### [facility] [address] [place], [address] PSA,Total - Annual Screenon 01-19-2024 PSA,TOT SCREEN 2.86 ng/mL Normal 0.00-4.00 [facility] Comment on above: Result Comment: This test was performed using the TPSA assay method for the Art Qualified chemistry system. Values obtained with different assay methods cannot be used interchangably. When changing PSA assays in the course of monitoring a patient, additional sequential testing should be carried out to confirm baseline values. Performed By: #### L [phone] ####[facility] [id number] [place], [address] Colonoscopy Reporton 024 Colonoscopy Report [facility] Medical Records Department [address] [place] [address] Colonoscopy Report MR#: [id number] Acct: [id number] Name: KB PONCE Rep #: [id number] : 1965 58 From: Allan Faust DO PCP: Dr. Peter Burris MD Status:REG [facility] Patient Name: Kb Ponce Procedure Date: 12/22/2023 8:30 AM Date of : 1965 Age: 58 Procedure: Colonoscopy Indications: Screening for colorectal malignant neoplasm Providers: Allan Faust DO Referring MD: Peter Burris MD Medicines: Monitored Anesthesia Care Patient Profile: This is a 58 year old male. Refer to note in patient chart for documentation of history and physical. Last Colonoscopy: none. The patient's first colonoscopy is today. Complications: No immediate complications. Procedure: Pre-Anesthesia Assessment: - Prior to the procedure, a History and Physical was performed, and patient medications and allergies were reviewed. The patient is competent. The risks and benefits of the procedure and the sedation options and risks were discussed with the patient. All questions were answered and informed consent was obtained. Patient identification and proposed procedure were verified by the physician in the pre-procedure area. Mental Status Examination: alert and oriented. Airway Examination: normal oropharyngeal airway and neck mobility. Respiratory Examination: clear to auscultation. CV Examination: normal. Prophylactic Antibiotics: The patient does not require prophylactic antibiotics. Prior Anticoagulants: The patient has taken no anticoagulant or antiplatelet agents except for NSAID medication. ASA Grade Assessment: II - A patient with mild systemic disease. After reviewing the risks and benefits, the patient was deemed in satisfactory condition to undergo the procedure. The anesthesia plan was to use monitored anesthesia care (MAC). Immediately prior to administration of medications, the patient was re-assessed for adequacy to receive sedatives. The heart rate, respiratory rate, oxygen saturations, blood pressure, adequacy of pulmonary ventilation, and response to care were monitored throughout the procedure. The physical status of the patient was re-assessed after the procedure. After I obtained informed consent, the scope was passed under direct vision. Throughout the procedure, the patient's blood pressure, pulse, and oxygen saturations were monitored continuously. The Colonoscope was introduced through the anus and advanced to the cecum, identified by appendiceal orifice and ileocecal valve. The colonoscopy was performed without difficulty. The patient tolerated the procedure well. The quality of the bowel preparation was adequate. Scope In: 8:43:28 AM Scope Withdrawal Time 0 hours 8 minutes 22 seconds Scope Out: 8:54:16 AM Total Procedure Duration Time 0 hours 10 minutes 48 seconds Findings: The perianal and digital rectal examinations were normal. Two sessile polyps were found in the sigmoid colon and hepatic flexure. The polyps were 5 mm in size. These polyps were removed with a jumbo cold forceps. Resection and retrieval were complete. Verification of patient identification for the specimen was done. Estimated blood loss was minimal. Multiple small-mouthed diverticula were found in the recto-sigmoid colon, sigmoid colon and descending colon. The exam was otherwise without abnormality on direct and retroflexion views. Impression: - Two 5 mm polyps in the sigmoid colon and at the hepatic flexure, removed with a jumbo cold forceps. Resected and retrieved. - Diverticulosis in the recto-sigmoid colon, in the sigmoid colon and in the descending colon. - The examination was otherwise normal on direct and retroflexion views. Recommendation: - Discharge patient to home. - Resume previous diet. - Continue present medications. - Await pathology results. - Repeat colonoscopy in 5 years for surveillance. Procedure Code(s): --- Professional --- 20364, Colonoscopy, flexible; with biopsy, single or multiple CPT copyright 2021 [employer]. All rights reserved. The codes documented in this report are preliminary and upon leather finisher review may be revised to meet current compliance requirements. Allan Faust DO 12/22/2023 8:59:53 AM This report has been signed electronically. Number of Addenda: 0 Note Initiated On: 12/22/2023 8:30 AM 12/22/23899 Date Allan Snyder Signature: Date (if indicated) CC: Dr. Peter Burris MD; Allan Faust DO Date Dictated: 12/22/23829 Date Transcribed: Log Getter: RF Signed [facility] MR/POSTOP.ANEon 12-22-2023 MR/POSTOP.[facility] Medical Records Department [address] [address] Anesthesia Postop Eval I 12/22/23902 MR#: [id number] Acct: [id number] Name: KB PONCE Rep #: [id number] : 1965 58 From: Ottoniel Briceno PCP: Dr. Peter Burris MD Status:[facility] Y Race: C Location: Anesthesia: Postop Eval I Current Vital Signs Temperature: 97.3 F Pulse Rate: 67 Blood Pressure: 120/81 Respiratory Rate: 14 Pulse Ox: 97 Oxygen Delivery Method: Room Air Assessment Airway patent: Yes Spontaneous unlabored respirations: Yes Mental status: Asleep nausea: No Vomiting: No Anesthesia Complication: No Fluid Hydration Crystalloid volume administer (ml): 600 Total IV fluid infused: 600 Progress Note Anesthesia document: Postop Eval 1 completed: Yes 12/22/23 1028 Ottoniel Mendoza Signature: Date CC: Signed [facility] MR/[id number] 12-22-2023 MR/POSTOPAN2 [facility] Medical Records Department [address] [place] [address] Anesthesia Postop Eval II 12/22/23921 MR#: [id number] Acct: [id number] Name: KB PONCE Rep #: [id number] : 1965 58 From: Judd Boykin MD PCP: Dr. Peter Burris MD Status:REG [facility] Y Race: C Location: [place] [address] Anesthesia Postop Eval I Sum Postop Eval Completion status Anesthesia document: Postop Eval 1 completed: Yes Anesthesia Postop Eval I Summary Anesthesia Postop Eval I Summary: Anesthesia Postop Eval I: Assessment Summary Airway patent Yes 12/22/23 09:04 [email or web address] Spontaneous unlabored Yes 12/22/23 09:04 [email or web address] respirations Mental status Asleep 12/22/23 09:04 [email or web address] nausea No 12/22/23 09:04 [email or web address] Vomiting No 12/22/23 09:04 [email or web address] Anesthesia Postop Eval I: Fluid Summary Crystalloid volume administer 600 12/22/23 09:04 [email or web address] (ml) Colloids volume administered ( ml) Blood Product volume administered (ml) Total IV fluid infused 600 12/22/23 09:04 [email or web address] Anesthesia Postop Eval I: Summary Notes Anesthesia Complication No 12/22/23 09:04 [email or web address] Anesthesia Complication Comment: Post-operative progress note Anesthesia: Postop Eval II Evaluation Mental status: Awake Pain Level: 0 nausea: No Vomiting: No 12/22/23921 Date Judd Boykin MD Cosigner Signature: Date CC: Signed Normal [facility] Surgery Specimen Level Alex 12-22-2023 Surgery Specimen Level IV Patient Age/Sex Location Account Attending Physician KB PONCE 58/M EN [id number] Allan Faust DO Specimen: [id number] Received: 12/22/23 Status: LASHA Desai Num: [id number] Spec Type: COLON BX Subm Dr: Allan Faust DO HEADER OPERATION: Colonoscopy PRE-OP DIAGNOSIS: Encounter for screening for malignant neoplasm of colon TISSUE SUBMITTED: A- Hepatic flexure biopsy, B- Sigmoid colon biopsy MICROSCOPIC DIAGNOSIS A. Hepatic flexure, biopsy: Tubular adenoma. B. Sigmoid colon, biopsy: Hyperplastic polyp. 12/23/2023 MICROSCOPIC DESCRIPTION Slides are reviewed. GROSS DESCRIPTION A. Received in fixative is one container labeled with the patient's name and designated Hepatic flexure biopsy. The specimen consists of one irregular fragment of light wood soft tissue that measures 0.3 x 0.3 x 0.1 cm. The specimen is totally submitted in one cassette. B. Received in fixative is one container labeled with the patient's name and designated Sigmoid colon biopsy. The specimen consists of one irregular fragment of light wood soft tissue that measures 0.4 x 0.3 x 0.1 cm. The specimen is totally submitted in one cassette. 12/22/2023 TC:1 [facility]:[id number] Patient Age/Sex Location Account Attending Physician KB PONCE 58/M EN [id number] Allan Faust DO Signed (signatur e on file) Dr. Jimenez Hicks MD 12/23/23 1012 Normal [facility] Comment on above: Performed By: #### P SUIV #### [facility] [address] [place], [place], [id number] Office Visit: UC: mark damon selma 01-31-2017 Documentation of current medications (procedure) Done Invalid Interpretation Code [facility] Work Phone: Fall risk assessment No Invalid Interpretation Code [facility] Work Phone: Rapid strep test Negative Invalid Interpretation Code [facility] Work Phone: Tobacco use CPHS Former smoker Invalid Interpretation Code [facility] Work Phone: Vital Signs Date Time Vital Sign Value Performing Clinician Arlet wu 01-31-2017 12:16-0400 BMI (Body Mass Index) 26.58 kg/m2 Porfirio BAL [facility] Work Phone: 01-31-2017 12:16-0400 Body Temperature 98 [degF] Porfirio BAL [facility] Work Phone: 01-31-2017 12:16-0400 BP Diastolic 86 mm[Hg] Porfirio BAL [facility] Work Phone: 01-31-2017 12:16-0400 BP Systolic 128 mm[Hg] Porfirio BAL [facility] Work Phone: 01-31-2017 12:16-0400 Height 180.34 cm Porfirio BAL [facility] Work Phone: 01-31-2017 12:16-0400 Pulse (Heart Rate) 71 /min Porfirio BLA [facility] Work Phone: 01-31-2017 12:16-0400 Respiratory Rate 14 /min Porfirio BAL [facility] Work Phone: 01-31-2017 12:16-0400 Weight 86.46 kg Porfirio BAL [facility] Work Phone: Encounters Encounter Date Encounter Type Care Provider Facility Start: 07-16-2024 End: 07-16-2024 ambulatory [facility] [place] Start: 02-23-2024 Encounter for genera l adult medical examination without abnormal findings [facility] Start: 01-30-2024 End: 01-30-2024 ambulatory [facility] [place] Start: 01-30-2024 End: 01-30-2024 ambulatory [facility] Start: 01-19-2024 End: 01-19-2024 ambulatory [facility] Facility:[facility] Start: 12-22-2023 End: 12-22-2023 ambulatory [facility] Start: 10-23-2023 ambulatory [facility] Procedures Date Procedure Procedure Detail Performing Clinician Start: 01-31-2017 End: 01-31-2017 [place] streptococcus group a Porfirio BAL Work Phone: Plan of Treatment Date Care Activity Detail Author Start: 01-31-2017 End: 01-31-2017 Streptococcus.beta-hemol ytic [Presence] in Throat by Organism specific culture *Culture, R/O Strep A Swab [facility] Work Phone: Start: 01-31-2017 End: 01-31-2017 Appointment Appointment [facility] Work Phone: Payers Date Payer Category Payer Self-pay 2023 Unknown [id number] 2023 Unknown [id number] Unknown [id number] 2.16.8 [id number] Unknown [id number] 2.16.8 [id number] Unknown [id number] 2.16.8 [id number] Unknown [id number] 2.16.8 [id number] Unknown [id number] 2.16.8 [id number] Unknown [id number] 2.16.8 [id number] Unknown [id number] 2.16.8 [id number] Clinical Note 12-22-2023 Note Date & Type Note Facility 12-22-2023 Note [facility] Medical Records Department [address] [place] [address] History Physical Exam 12/22/23 0801 MR#: [id number] Acct: [id number] Name: KB PONCE Rep #: [id number] : 1965 58 From: Allan Friend PCP: Dr. Peter Burris MD Status:[facility] Location: [place] [address] HPI - General General Date of Admission: 12/22/23 Date of Service: 12/22/23 Chief Complaint: Screening colonoscopy HPI Narrative KB PONCE, is a 58 M who presents today for screening colonoscopy. He has no significant past medical history. He is not take any medicines on a daily basis. He does not have any chest pain or shortness of breath. He has not had a colonoscopy before. [facility] Medical History Alcohol use Arthritis Injury of head and neck Blackout History of ulceration Former smoker Right ankle sprain Seasonal allergies Stomach ulcer Home Medications ???Medication ???Instructions ???Recorded ???Last Taken ???Type ascorbic acid (vitamin C) 500 mg 500 mg PO DAILY 10/23/23 Unknown History tablet cjkdbah-mrsdcjqxcrjyh-hrrobdqy 250 1 tab PO Q4-6H PRN pain 10/23/23 Unknown History mg-250 mg-65 mg tablet (Excedrin Extra Strength) lqryctpd-saugxohn-zzbma acid 400 1 tab PO DAILY 10/23/23 Unknown History mcg-vit K 20 mcg-lycop 300 mcg tablet (One-A-Day Men's Multivitamin) Allergy/AdvReac Type Severity Reaction Status Date / Time codeine Allergy Vomiting Verified 12/22/23 07:56 Environmental Allergies: Allergy Other Verified 12/22/23 07:56 Uncoded Family History Aunt Colon cancer Breast cancer Mother Diverticulitis Lung cancer Brother Diverticulitis Grandmother Brain cancer Uncle Prostate CA Other Cancer Surgical History Hx of oral surgery Social History household members: spouse current occupational status: employed Smoking Status: Former smoker alcohol intake: current alcohol intake frequency: a few times a month Alcohol type: beer substance use type: does not use ROS Review of Systems ROS Unobtainable: other Constitutional Constitutional: Denies fatigue, fever(s), poor appetite, weight gain or weight loss ENT HEENT: Denies mouth lesions Cardiovascular Cardiovascular: Denies abdominal bloating, abdominal edema or abdominal pain Respiratory/Chest Respiratory/Chest: Denies change in mental status, change in phlegm color, chest congestion or chest tightness Gastrointestinal Gastrointestinal: Denies belching, bloating, change in bowel habits, change in stool character, chewing difficulty, coffee ground emesis, constipation, cramping, diarrhea, dyspepsia, dysphagia, early satiety, excessive flatus, fecal incontinence, heartburn, hematemesis, hematochezia, hemorrhoids, loose stools, melena, nausea, odynophagia, rectal bleeding, tenesmus, vomiting or weight changes Genitourinary Genitourinary: Denies abdominal discomfort, burning urination or itching Musculoskeletal Musculoskeletal: Reports as per HPI; Denies muscle weakness or myalgias Integumentary Integumentary: Denies jaundice Neurologic Neurologic: Denies lack of coordination or weakness Psychiatric Psychiatric: Denies confusion, depression, memory loss, mood swings, paranoia or suicidal ideation Endocrine Endocrinology: Denies systems reviewed and no addt'l complaints, except as documented Hematologic/Lymphatic Hematologic/Lymphatic: Denies anemia, easy bleeding, easy bruising or lymphadenopathy Allergic/Immunologic Allergic/Immunologic: Denies systems reviewed and no addt'l complaints, except as documented Physical Exam Const alert General Appearance: cooperative Orientation / Consciousness: oriented to person HEENT hearing grossly normal bilaterally Head and Scalp: normal to inspection Face and Sinus: face symmetric Nose: external nose normal Mouth: oral and palatal mucosa normal Eyes conjunctivae normal General Eye: normal appearance of both eyes Neck full ROM General: normal visual inspection Lymph Lymphatic: no lymphadenopathy noted Chest inspection of chest normal and palpation of chest normal Chest: symmetrical chest wall rise Resp normal respiratory effort Effort and Inspection: able to speak in complete sentences Cardio regular rate GI non-distended Percussion: normal to percussion Rectal Exam: deferred Neuro Speech: speech normal Gait (Neuro): normal gait Assessment Plan Assessment/Plan (1) Encounter for screening for malignant neoplasm of colon: PLAN: Who was explained alternatives, risk, benefits include not withstanding bleeding, infection, sepsis, perforation, nee (more content not included)... [facility] Summary Purpose Family History No Family History Records Found Advance Directives No Advanced Directives Records Found Additional Source Comments (unrecognized sect ion and content) No Status Records Found INFORMATION SOURCE (unrecogn ized section and content) DATE CREATED AUTHOR 07/18/2024 [facility] FOR RECORDS PERTAINING TO PATIENTS WHO ARE OR HAVE BEEN ENROLLED IN A CHEMICAL DEPENDENCY/SUBSTANCEABUSE PROGRAM, SOME INFORMATION MAY BE OMITTED. This clinical summary was aggregated from multiple sources. Caution should be exercised in using it in the provision of clinical care. This summary normalizes information from multiple sources, and as a consequence, information in this document may materially change the coding, format and clinical context of patient data. In addition, data may be omitted in some cases. CLINICAL DECISIONS SHOULD BE BASED ON THE PRIMARY CLINICAL RECORDS. [facility]. provides no warranty or guarantee of the accuracy or completeness of information in this document.
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
[2025-01-14 12:58] LABS: Hematocrit 50.7 % (40-54); Hemoglobin 17.4 g/dL (13.0-16.5); Immature Granulocytes Count 0.030 X10^3/uL (0.0-0.0); Mean Corp Hgb Conc 34.3 g/dL (32-36); Mean Corpuscular Volume 85.2 fL (80-94); Mean Platelet Vol. 9.1 fl (6.2-12.0); NRBC Flagged by Analyzer 0 % (0-5); Platelet Count 191 K/mm3 (150-450); RBC Distribution Width CV 12.2 % (11.6-14.6); RBC Distribution Width SD 37.7 fl (35.1-43.9); Red Blood Count 5.95 M/mm3 (4.6-6.2); White Blood Count 5.3 K/mm3 (4.4-11.0)
[2025-01-14 13:44] LABS: AST(SGOT) 42 U/L (<=37); Alanine Aminotransfer ALT/SGPT 57 U/L (<=46); Albumin, Serum 4.5 g/dL (3.5-5.0); Alkaline Phosphatase 65 U/L (40-129); Anion Gap 11 (5-15); BUN 14 mg/dL (4-19); BUN/Creat Ratio 13.7 RATIO (10-20); Calcium,Total 9.4 mg/dL (7.6-11.0); Carbon Dioxide 24.0 mmol/L (21.0-32.0); Chloride 101 mmol/L (98-108); Cholesterol 156 mg/dL (<=200); Globulin 2.8 g/dL (2.2-4.2); Glucose 91 mg/dL (70-99); Low Density Lipoprotein Calc. 92 mg/dL; Potassium 4.1 mmol/L (3.3-5.1); Triglycerides 85 mg/dL; Very Low Density Lipoprotein 17 mg/dL (5-40); cholesterol:hdl ratio screen 3.24
== END | disposition home or self-care (01) ==
LOC: LAB 12:18
PROVIDERS: PCP Internal Medicine; Referring Provider Physician Assistant; Visit Provider Physician Assistant
DX: Z00.00 Encounter for general adult medical examination without abnormal findings (principal)
CPT/HCPCS: 36415; 80053; 80061; 85025

== ENCOUNTER → 2025-03-11 | Outpatient (CLI) | payer BC, OTHER, SELFPAY ==
--- OUTSIDE RECORDS SUMMARY | 2025-03-11 17:08 | XMS RPT_ITS | CCD ---
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 Green Primary Care Physician Fatuma PATIÑO, Dr. Green Referring Provider [phone] Hussain Dye Referring Provider Oleghe, Efewongbe Primary Care Unavailable Hussain Dye Attending Unavailable Hussain Dye Referring Unavailable Oleghe, Efewongbe Primary Care Unavailable Oleghe, Efewongbe Attending Unavailable Oleghe, Efewongbe Referring Unavailable Oleghe, Efewongbe Primary Care Unavailable Oleghe, Efewongbe Attending Unavailable Oleghe, Efewongbe Referring Unavailable Oleghe, Efewongbe Primary Care Unavailable Hussain Dye Attending Unavailable Oleghe, Efewongbe Referring Unavailable Oleghe, Efewongbe Primary Care Unavailable Oleghe, Efewongbe Attending Unavailable Oleghe, Efewongbe Referring Unavailable Allergies Allergy Classification Reported Allergen(s) Allergy Type Date of Onset Reaction(s) Facility (2 sources) MOLD/DUST; Translations: [MOLD/DUST] allergy to substance 7 [facility] Work Phone: (1 source) Codeine Drug Allergy 5 [facility] Comment on above: As a child (2 sources) Environmental Allergies: Uncoded; Translations: [Environmental Allergies: Uncoded] Allergy to substance 5 [facility] (1 source) Codeine Drug Allergy [facility] Repository Medications Current Medications Medication Drug Class(es) Dates Sig (Normalized) Sig (Original) acetaminophen 250 mg / aspirin 250 mg / caffeine 65 mg oral tablet (1 source) Platelet Aggregation Inhibitor, Nonsteroidal Anti-inflammatory Drug, Central Nervous System Stimulant, Methylxanthine Start: 10-23-2023 ascorbic acid 500 mg oral tablet (1 source) Vitamin C Start: 10-23-2023 take 1 tablet by mouth once daily Flaxseed extract (1 source) Non-Standardized Food Allergenic Extract, Non-Standardized Plant Allergenic Extract Start: 01-30-2024 Luxwyezj-Tud-Wujhg- Vit K-Lycop (One-A-Day Men's Multivitamin) 400-20-300 mcg tablet (1 source) Start: 10-23-2023 tadalafil 5 mg oral tablet (1 source) Phosphodiesterase 5 Inhibitor Start: 01-30-2024 take 1 tablet by mouth once daily Completed/Discontinued Medications Medication Drug Class(es) Dates Sig (Normalized) Sig (Original) acetaminophen 500 mg oral tablet (3 sources) Start: 07-24-2017 End: 03-29-2022 take 1 tablet by mouth every six hours as needed Acetaminophen (Tylenol Extra Strength) 500 mg tablet Discontinued 500 mg PO EVERY 6 HOURS as needed July 24, 2017 12:00am March 29, 2022 9:24am Start: 01-31-2017 TYLENOL TABS a s directed ACETAMINOPHEN TABS [id number] Porfirio BAL amoxicillin 500 mg oral tablet (2 sources) Penicillin-class Antibacterial Start: 01-31-2017 End: 02-10-2017 AMOXICILLIN 500 MG TABS Take one tab every 12 hours AMOXICILLIN [id number] Porfirio BAL benzonatate 200 mg oral capsule (1 source) Non-narcotic Antitussive Start: 07-24-2017 End: 03-20-2022 take 1 capsule by mouth three times daily as needed for cough Benzonatate 200 mg capsule Discontinued 200 mg PO THREE TIMES A DAY as needed for cough 20 0 July 24, 2017 12:00am March 20, 2022 1:46pm Problems Active Problems Problem Classification Problem Date Documented Da te Episodic/Chronic Administrative/social admission (4 sources) Patient encounter status; Translations: [Persons encountering health services in other specified circumstances] 01-30-2024 Episodic Essential hypertension (1 source) Hypertensive disorder; Translations: [Essential (primary) hypertension] 01-30-2024 Chronic Headache; including migraine (1 source) Chronic headache disorder; Translations: [Chronic headache disorder] 01-30-2024 Episodic Influenza (1 source) Influenza due to Influenza B virus; Translations: [Influenza due to other identified influenza virus with other respiratory manifestations] 07-24-2017 Episodic Other circulatory disease (2 sources) Elevated blood pressure; Translations: [Elevated blood-pressure reading, without diagnosis of hypertension] 01-14-2025 Episodic Sprains and strains (1 source) Sprain of right ankle; Translations: [Sprain of unspecified ligament of right ankle, initial encounter] 03-20-2022 Episodic Past or Other Problems Problem Classification Problem Date Documented Da te Episodic/Chronic Other upper respiratory infections (2 sources) Pharyngitis; Translations: [Acute pharyngitis, unspecified] Onset: 01-31-2017 01-31-2017 Episodic Otitis media and related conditions (2 sources) Otitis media; Translations: [Otitis media, unspecified, left ear] Onset: 01-31-2017 01-31-2017 Episodic Results Test Name Value Interpretation Reference Range Facility Absolute lymphocyte countOrd ered By: Hussain Burgos on 01-14-2025 Lymphocytes Auto (Unsp spec) [#/Vol] 1.12 10*3/uL 0.83-4.51 [facility] Absolute neutrophil countOrd ered By: Hussain Burgos on 01-14-2025 Neutrophils (Bld) [#/Vol] 3.7 10*3/uL 2.0-7.7 [facility] Anion gap in Serum or Plasma Ordered By: Hussain Burgos on 01-14-2025 Anion gap [Moles/Vol] 11 mmol/L 5-15 [facility] Automated lymphocyte count a s percentage of total leukocytesOrdered By: Hussain Burgos on 01-14-2025 Lymphocytes/100 WBC Auto (Unsp spec) 21.0 % 19-41 [facility] BUN/creatinine ratioOrdered By: Hussain Burgos on 01-14-2025 Urea nitrogen/Creatinine [Mass ratio] 13.7 mg/mg 10-20 [facility] Basophil percentageOrdered B y: Hussain Burgos on 01-14-2025 Basophils/100 WBC (Bld) 0.4 % 0-1 [facility] Bilirubin, totalOrdered By: Hussain Burgos on 01-14-2025 Bilirubin [Mass/Vol] 0.90 mg/dL 0.00-1.30 [facility] CBC W/Diff, Automatedon 12-29 Absolute Lymph 1.12 X10 3/uL Normal 0.83-4.51 [facility] Comment on above: Performed By: #### L 500.4050, L100.0100, L500.4100 #### [facility] [address] [place], [address] Absolute Neut 3.7 X10 3/uL Normal 2.0-7.7 [facility] Comment on above: Performed By: #### L 500.4050, L100.0100, L500.4100 #### [facility] [address] [place], [address] Basophils/100 WBC (Bld) 0.4 % Normal 0-1 [facility] Comment on above: Performed By: #### L 500.4050, L100.0100, L500.4100 #### [facility] [address] [place], [address] Eosinophils/100 WBC (Bld) 0.9 % Normal 0-5 [facility] Comment on above: Performed By: #### L 500.4050, L100.0100, L500.4100 #### [facility] [address] [place], [address] Erythrocyte distribution width (RBC) [Ratio] 12.2 % Normal 11.6-14.6 [facility] Comment on above: Performed By: #### L 500.4050, L100.0100, L500.4100 #### [facility] [address] [place], [address] Hematocrit (Bld) [Volume fraction] 50.7 % Normal 40-54 [facility] Comment on above: Performed By: #### L 500.4050, L100.0100, L500.4100 #### [facility] [address] [place], [address] Hemoglobin (Bld) [Mass/Vol] 17.4 g/dL High 13.0-16.5 [facility] Comment on above: Performed By: #### L 500.4050, L100.0100, L500.4100 #### [facility] [address] [place], [address] IG% 0.600 Normal 0.0-0.9 [facility] Comment on above: Result Comment: IG% - Immature Granulocytes (promyelocytes, myelocytes and metamyelocytes) > 1% indicates that a LEFT SHIFT is Present. Performed By: #### L 500.4050, L100.0100, L500.4100 #### [facility] [address] [place], [address] Lymphocytes/100 WBC (Bld) 21.0 % Normal 19-41 [facility] Comment on above: Performed By: #### L 500.4050, L100.0100, L500.4100 #### [facility] [address] [place], [address] MCH (RBC) [Entitic mass] 29.2 pg Normal 27.0-32.0 [facility] Comment on above: Performed By: #### L 500.4050, L100.0100, L500.4100 #### [facility] [address] [place], [address] MCHC (RBC) [Mass/Vol] 34.3 g/dL Normal 32-36 [facility] Comment on above: Performed By: #### L 500.4050, L100.0100, L500.4100 #### [facility] [address] [place], [address] MCV (RBC) [Entitic vol] 85.2 fL Normal 80-94 [facility] Comment on above: Performed By: #### L 500.4050, L100.0100, L500.4100 #### [facility] [address] [place], [address] Monocytes/100 WBC (Bld) 8.1 % Normal 0-10 [facility] Comment on above: Performed By: #### L 500.4050, L100.0100, L500.4100 #### [facility] [address] [place], [address] Neutrophils/100 WBC (Bld) 69.0 % Normal 47-70 [facility] Comment on above: Performed By: #### L 500.4050, L100.0100, L500.4100 #### [facility] [address] [place], [address] Nucleated RBC (Bld) [#/Vol] 0 10*3/uL Normal 0-5 [facility] Comment on above: Performed By: #### L 500.4050, L100.0100, L500.4100 #### [facility] [address] [place], [address] Platelet mean volume (Bld) [Entitic vol] 9.1 fL Normal 6.2-12.0 [facility] Comment on above: Performed By: #### L 500.4050, L100.0100, L500.4100 #### [facility] [address] [place], [address] Platelets (Bld) [#/Vol] 191 10*3/uL Normal 150-450 [facility] Comment on above: Performed By: #### L 500.4050, L100.0100, L500.4100 #### [facility] [address] [place], [address] RBC (Bld) [#/Vol] 5.95 10*6/uL Normal 4.6-6.2 [facility] Comment on above: Performed By: #### L 500.4050, L100.0100, L500.4100 #### [facility] [address] [place], [address] RDW SD 37.7 fl Normal 35.1-43.9 [facility] Comment on above: Performed By: #### L 500.4050, L100.0100, L500.4100 #### [facility] [address] [place], [address] WBC (Bld) [#/Vol] 5.3 10*3/uL Normal 4.4-11.0 [facility] Comment on above: Performed By: #### L 500.4050, L100.0100, L500.4100 #### [facility] [address] [place], [address] Calculated very low density lipoprotein (VLDL) cholesterol measurementOrdered By: Hussain Burgos on 01-14-2025 Calculated very low density lipoprotein (VLDL) cholesterol measurement 17 mg/dL 5-40 [facility] Carbon dioxide, total [Moles /volume] in Central venous bloodOrdered By: Hussain Burgos on 01-14-2025 CO2 [Moles/Vol] 24.0 mmol/L 21.0-32.0 [facility] Chloride assayOrdered By: Kaylen Burgos on 01-14-2025 Chloride [Moles/Vol] 101 mmol/L 98-108 [facility] Comprehensive Metabolic Prof ilon 01-14-2025 Albumin [Mass/Vol] 4.5 g/dL Normal 3.5-5.0 [facility] Comment on above: Performed By: #### L 500.4050, L100.0100, L500.4100 #### [facility] [address] [place], [address] Albumin/Globulin [Mass ratio] 1.6 {ratio} Normal 0.9-2.4 [facility] Comment on above: Performed By: #### L 500.4050, L100.0100, L500.4100 #### [facility] [address] [place], [address] ALK PHOS 65 U/L Normal 40-129 [facility] Comment on above: Performed By: #### L 500.4050, L100.0100, L500.4100 #### [facility] [address] [place], [address] ALT [Catalytic activity/Vol] 57 U/L High <=46 [facility] Comment on above: Performed By: #### L 500.4050, L100.0100, L500.4100 #### [facility] [address] [place], [address] AST [Catalytic activity/Vol] 42 U/L High <=37 [facility] Comment on above: Performed By: #### L 500.4050, L100.0100, L500.4100 #### [facility] [address] [place], [address] Bilirubin [Mass/Vol] 0.90 mg/dL Normal 0.00-1.30 [facility] Comment on above: Performed By: #### L 500.4050, L100.0100, L500.4100 #### [facility] [address] [place], [address] BUN/CRE 13.7 RATIO Normal 10-20 [facility] Comment on above: Performed By: #### L 500.4050, L100.0100, L500.4100 #### [facility] [address] [place], [address] Calcium [Mass/Vol] 9.4 mg/dL Normal 7.6-11.0 [facility] Comment on above: Performed By: #### L 500.4050, L100.0100, L500.4100 #### [facility] [address] [place], [address] Chloride [Moles/Vol] 101 mmol/L Normal 98-108 [facility] Comment on above: Performed By: #### L 500.4050, L100.0100, L500.4100 #### [facility] [address] [place], [address] CO2 [Moles/Vol] 24.0 mmol/L Normal 21.0-32.0 [facility] Comment on above: Performed By: #### L 500.4050, L100.0100, L500.4100 #### [facility] [address] [place], [address] Creatinine [Mass/Vol] 0.98 mg/dL Normal 0.70-1.20 [facility] Comment on above: Performed By: #### L 500.4050, L100.0100, L500.4100 #### [facility] [address] [place], [address] GAP 11 Normal 5-15 [facility] Comment on above: Performed By: #### L 500.4050, L100.0100, L500.4100 #### [facility] [address] [place], [address] GFR/1.73 sq M.predicted among non-blacks MDRD (S/P/Bld) [Vol rate/Area] 89 mL/min/{1.73_m2} Normal >60 [facility] Comment on above: Result Comment: mL/m in/1.73m2 CKD-EPI Creatinine Equation (2020) Performed By: #### L 500.4050, L100.0100, L500.4100 #### [facility] [address] [place], [address] Globulin (S) [Mass/Vol] 2.8 g/dL Normal 2.2-4.2 [facility] Comment on above: Performed By: #### L 500.4050, L100.0100, L500.4100 #### [facility] [address] [place], [address] Glucose [Mass/Vol] 91 mg/dL Normal 70-99 [facility] Comment on above: Performed By: #### L 500.4050, L100.0100, L500.4100 #### [facility] [address] [place], [address] Potassium [Moles/Vol] 4.1 mmol/L Normal 3.3-5.1 [facility] Comment on above: Performed By: #### L 500.4050, L100.0100, L500.4100 #### [facility] [address] [place], [address] Sodium [Moles/Vol] 136 mmol/L Normal 133-145 [facility] Comment on above: Performed By: #### L 500.4050, L100.0100, L500.4100 #### [facility] [address] [place], [address] T PROT 7.4 g/dL Normal 5.9-8.4 [facility] Comment on above: Performed By: #### L 500.4050, L100.0100, L500.4100 #### [facility] [address] [place], [address] Urea nitrogen [Mass/Vol] 14 mg/dL Normal 4-19 [facility] Comment on above: Performed By: #### L 500.4050, L100.0100, L500.4100 #### [facility] [address] [place], [address] Eosinophil percentageOrdered By: Hussain Burgos on 01-14-2025 Eosinophils/100 WBC (Bld) 0.9 % 0-5 [facility] Erythrocyte distribution wid th ratioOrdered By: Hussain Burgos on 01-14-2025 Erythrocyte distribution width (RBC) [Ratio] 12.2 % 11.6-14.6 [facility] Erythrocyte distribution wid th standard deviationOrdered By: Hussain Burgos on 01-14-2025 Erythrocyte distribution width (RBC) [Ratio] 37.7 fl 35.1-43.9 [facility] Glomerular filtration rate ( GFR) estimation/1.73 sq m using serum, plasma, or whole bOrdered By: Hussain Burgos on 01-14-2025 GFR/1.73 sq M.predicted among non-blacks MDRD (S/P/Bld) [Vol rate/Area] 89 mL/min/{1.73_m2} >60 [facility] Comment on above: mL/min/1.73m2 CKD-EP I Creatinine Equation (2020) Hematocrit Auto (Bld) [Volum e fraction]Ordered By: Hussain Burgos on 01-14-2025 Hematocrit (Bld) [Volume fraction] 50.7 % 40-54 [facility] Hemoglobin measurementOrdere d By: Hussain Burgos on 01-14-2025 Hemoglobin (Bld) [Mass/Vol] 17.4 g/dL High 13.0-16.5 [facility] Immature granulocytes/100 WB C Auto (Bld)Ordered By: Hussain Burgos on 01-14-2025 Immature granulocytes/100 WBC (Bld) 0.600 % 0.0-0.9 [facility] Comment on above: IG% - Immature Granu locytes (promyelocytes, myelocytes and metamyelocytes) > 1% indicates that a LEFT SHIFT is Present. Internal Medicine Office Vis itophilomena 01-14-2025 Internal Medicine Office Visit [facility] Internal Medicine [address] [place], [place] [address] OFFICE VISIT Date of Service: 01/14/25 MR#: [id number] Acct: [id number] Name: [address] Rep #: [id number] : 1965 Provider: MALLY Simmons Age/Sex: 59/M Location[place] [facility] Status: Signed Intake Vital Signs 07/16/24 09:19 01/14/25 11:02 Height 5 ft 10 in 5 ft 10 in Weight: 196 lb 4 oz 195 lb 4 oz BMI 28.1 28.0 BP 132/78 H 138/80 H Blood Pressure Location Lt brachial Lt brachial Position Sitting Sitting Respiration 14 16 Pulse 73 74 Pulse Source Monitor Monitor Temp 96 F L 97.4 F L Temp Source Temporal Temporal Pulse Oximetry (%) 95 97 Oxygen Delivery Method room air room air Intake Visit Reasons: Wellness Chief Complaint: fu [employer] Required: No Accompanied by: Self Is patient in pain?: No Allergies codeine Allergy (Verified 01/14/25 10:52) Vomiting Environmental Allergies: Uncoded Allergy (Verified 01/14/25 10:52) Other Medications ???Medication ???Instructions ???Recorded ???Confirmed ???Type ascorbic acid (vitamin C) 500 mg 500 mg PO DAILY 10/23/23 01/14/25 History tablet aspirin-acetaminop hen-caffeine 250 1 tab PO Q4-6H PRN pain 10/23/23 01/14/25 History mg-250 mg-65 mg tablet (Excedrin Extra Strength) multivit-minerals- folic acid 400 1 tab PO DAILY 10/23/23 01/14/25 H istory mcg-vit K 20 mcg-lycop 300 mcg tablet (One-A-Day Men's Multivitamin) FLAX SEED PO DAILY 01/30/24 01/14/25 History tadalafil 5 mg tablet (Cialis) 5 mg PO QDAY 01/30/24 01/14/25 His tory 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 Not currently taking any medications He has some minor seasonal allergies There is family history of cancers in the family (males and females). He had 2 uncles with prostate Cancer. No nicotine use (he smoked but quit 20 years ago) He does consume coffee (couple cups a day) He does drink ETOH (a few drinks periodically) He does get regular exercise running on treadmill. He also gets a lot of steps in daily (tries to walk also a couple days a week) He does have a healthy diet eating a lot of fruits and vegetables. He avoids junk food for the most part He does not see eye doctor. He states that he does use readers. Has not had recent changes He does see dentist regularly He is UTD with colonoscopy. (recommended every 5 years) PSA has been done previously He believes he is UTD with immunizations. He does not get flu shot as 3 times in a row he got very sick after getting the flu shot ROS Const Constitutional: No body ache, excessive sweating, fatigue, fever(s), frequent falls, headache(s), snoring, weakness, weight change, sleep problems or change in appetite Eyes Eyes: No blurry vision, change in vision, eye pain or Light sensitivity ENT ENT: No abnormal hearing, ear or mastoid pain, tinnitus, nasal congestion, headache(s), neck pain or sore throat Resp Respiratory: No cough, shortness of breath, snoring or wheezing Cardio Cardiology: No chest pain at rest, chest pain with exertion, excessive sweating, shortness of breath, dyspnea on exertion, lightheadedness, orthopnea or palpitations Gastro GI: No abdominal pain, change in bowel habits, constipation, cramping, diarrhe (more content not included)... Normal [facility] LDL calc ser/plasOrdered By: Hussain Burgos on 01-14-2025 Cholesterol in LDL [Mass/Vol] 92 mg/dL [facility] Comment on above: Sliffikqji=362-812 m g/dL & Higher Pjhn=984 mg/dL or greaterSampson Equation 2020 for LDL-C Laboratory - Chemistry and C hemistry - challengeOrdered By: Hussain Burgos on 01-14-2025 AST [Catalytic activity/Vol] 42 U/L High <38 [facility] Lipid Profileon 01-14-2025 CHOL:HDL 3.24 Normal [facility] Comment on above: Performed By: #### L 500.4050, L100.0100, L500.4100 #### [facility] [address] [place], [address] Cholesterol [Mass/Vol] 156 mg/dL Normal <=200 [facility] Comment on above: Result Comment: Chol esterol level, Desirable <200 mg/dL Borderline high cholesterol 200-239 mg/dL High cholesterol >=240 mg/dL Recommendations of the NCEP Adult Treatment Panel for the following risk-cutoff thresholds for the [place] population. Performed By: #### L 500.4050, L100.0100, L500.4100 #### [facility] [address] [place], [address] Cholesterol in HDL [Mass/Vol] 48 mg/dL Normal [facility] Comment on above: Result Comment: Francy onal Cholesterol Education Program (NCEP) guidelines: <40 mg/dL: Low HDL-cholesterol (major risk factor for CHD) >= 60 mg/dL: High HDL-cholesterol (negative risk factor for CHD) HDL-cholesterol is affected by a number of factors, e.g. smoking, exercise, hormones, sex and age. Performed By: #### L 500.4050, L100.0100, L500.4100 #### [facility] [address] [place], [address] Cholesterol in LDL [Mass/Vol] 92 mg/dL Normal [facility] Comment on above: Result Comment: Bord cntfow=609-509 mg/dL Higher Khwv=765 mg/dL or greater Cooper Equation 2020 for LDL-C Performed By: #### L 500.4050, L100.0100, L500.4100 #### [facility] [address] [place], [address] Cholesterol in VLDL [Mass/Vol] 17 mg/dL Normal 5-40 [facility] Comment on above: Performed By: #### L 500.4050, L100.0100, L500.4100 #### [facility] [address] [place], [address] Triglyceride [Mass/Vol] 85 mg/dL Normal [facility] Comment on above: Result Comment: The drugs N-Acetylcysteine and Metamizole may falsely depress this assay. Normal range: <150 mg/dL Borderline High: 150-199 mg/dL High: 200-499 mg/dL Very High: >500 mg/dL Performed By: #### L 500.4050, L100.0100, L500.4100 #### [facility] [address] [place], [address] MCV (mean corpuscular volume ) determinationOrdered By: Hussain Burgos on 01-14-2025 MCV (RBC) [Entitic vol] 85.2 fL 80-94 [facility] Mean corpuscular hemoglobin (MCH) determinationOrdered By: Hussain Burgos on 01-14-2025 MCH (RBC) [Entitic mass] 29.2 pg 27.0-32.0 [facility] Mean corpuscular hemoglobin concentration (MCHC) determinationOrdered By: Hussain Burgos on 01-14-2025 MCHC (RBC) [Mass/Vol] 34.3 g/dL 32-36 [facility] Mean platelet volume determi nationOrdered By: Hussain Burgos on 01-14-2025 Platelet mean volume (Bld) [Entitic vol] 9.1 fL 6.2-12.0 [facility] Monocyte percentageOrdered B y: Hussain Burgos on 01-14-2025 Monocytes/100 WBC (Bld) 8.1 % 0-10 [facility] Neutrophil percentageOrdered By: Hussain Burgos on 01-14-2025 Neutrophils/100 WBC (Bld) 69.0 % 47-70 [facility] Nucleated red blood cell per centageOrdered By: Hussain Burgos on 01-14-2025 Nucleated RBC/100 WBC (Bld) [Ratio] 0 % 0-5 [facility] Platelet countOrdered By: Kaylen Burgos on 01-14-2025 Platelets (Bld) [#/Vol] 191 10*3/uL 150-450 [facility] Potassium measurement (mass/ volume)Ordered By: Hussain Burgos on 01-14-2025 Potassium (Unsp spec) [Mass/Vol] 4.1 mmol/L 3.3-5.1 [facility] RBC Auto (Bld) [#/Vol]Ordere d By: Hussain Burgos on 01-14-2025 RBC (Bld) [#/Vol] 5.95 10*6/uL 4.6-6.2 [facility] Screening total cholesterol/ high density lipoprotein (HDL) cholesterol ratioOrdered By: Hussain Burgos on 01-14-2025 Cholesterol.total/Choles terol in HDL [Mass ratio] 3.24 {ratio} [facility] Serum creatinine measurement (mass/volume)Ordered By: Hussain Burgos on 01-14-2025 Creatinine [Mass/Vol] 0.98 mg/dL 0.70-1.20 [facility] Serum globulin measurementOr dered By: Hussain Burgos on 01-14-2025 Globulin (S) [Mass/Vol] 2.8 g/dL 2.2-4.2 [facility] Serum glucose measurement (m ass/volume)Ordered By: Hussain Burgos on 01-14-2025 Glucose [Mass/Vol] 91 mg/dL 70-99 [facility] Serum or plasma alanine fabian otransferase (ALT) measurementOrdered By: Hussain Burgos on 01-14-2025 ALT [Catalytic activity/Vol] 57 U/L High <47 [facility] Serum or plasma albumin amie urement (mass/volume)Ordered By: Hussain Burgos on 01-14-2025 Albumin [Mass/Vol] 4.5 g/dL 3.5-5.0 [facility] Serum or plasma albumin/glob ulin mass ratioOrdered By: Hussain Burgos on 01-14-2025 Albumin/Globulin [Mass ratio] 1.6 {ratio} 0.9-2.4 [facility] Serum or plasma alkaline janny sphatase measurementOrdered By: Hussain Burgos on 01-14-2025 ALP [Catalytic activity/Vol] 65 U/L 40-129 [facility] Serum or plasma calcium amie urement (mass/volume)Ordered By: Hussain Burgos on 01-14-2025 Calcium [Mass/Vol] 9.4 mg/dL 7.6-11.0 [facility] Serum or plasma cholesterol in HDL measurement (mass/volume)Ordered By: Hussain Burgos on 01-14-2025 Cholesterol in HDL [Mass/Vol] 48 mg/dL >40 [facility] Comment on above: National Cholesterol Education Program (NCEP) guidelines:<40 mg/dL: Low HDL-cholesterol (major risk factor for CHD)>= 60 mg/dL: High HDL-cholesterol (negative risk factor for CHD)HDL-cholesterol is affected by a number of factors, e.g. smoking, exercise, hormones, sex and age. Serum or plasma cholesterol measurement (mass/volume)Ordered By: Hussain Burgos on 01-14-2025 Cholesterol [Mass/Vol] 156 mg/dL <201 [facility] Comment on above: Cholesterol level, D esirable <200 mg/dLBorderline high cholesterol 200-239 mg/dLHigh cholesterol >=240 mg/dLRecommendations of the NCEP Adult Treatment Panel for the following risk-cutoff thresholds for the [place] population. Serum or plasma urea nitroge n measurement (mass/volume)Ordered By: Hussain Burgos on 01-14-2025 Urea nitrogen [Mass/Vol] 14 mg/dL 4-19 [facility] Sodium levelOrdered By: Giovanny Burgos on 01-14-2025 Sodium [Moles/Vol] 136 mmol/L 133-145 [facility] Total proteinOrdered By: Dawit Burgos on 01-14-2025 Protein [Mass/Vol] 7.4 g/dL 5.9-8.4 [facility] Triglycerides measurementOrd ered By: Hussain Burgos on 01-14-2025 Triglyceride [Mass/Vol] 85 mg/dL <199 [facility] Comment on above: The drugs N-Acetylcy steine and Metamizole may falsely depress this assay. Normal range: <150 mg/dLBorderline High: 150-199 mg/dLHigh: 200-499 mg/dLVery High: >500 mg/dL White blood cell (WBC) count Ordered By: Hussain Burgos on 01-14-2025 WBC (Bld) [#/Vol] 5.3 10*3/uL 4.4-11.0 [facility] Internal Medicine Office Vis iton 07-16-2024 Internal Medicine Office Visit [facility] [place] [address] [place] [address] OFFICE VISIT Date of Service: 07/16/24 MR#: [id number] Acct: [id number] Name: [address] Rep #: [id number] : 1965 Provider: Dr. Peter chauhan MD Age/Sex: 58/M [place] [facility] Status: Signed Intake Vital Signs 01/30/24 [...] Reasons: 3 M FU Chief Complaint: fu [employer] Work[employer] Required: No Accompanied by: Self Is patient in pain?: No Allergies codeine Allergy (Verified 07/16/24 09:17) Vomiting Environmental Allergies: Uncoded Allergy (Verified 07/16/24 09:17) Other Medications ???Medication ???Instructions ???Recorded ???Confirmed ???Type ascorbic acid (vitamin C) 500 mg 500 mg PO DAILY 10/23/23 07/16/24 History tablet aspirin-acetaminop hen-caffeine 250 1 tab PO Q4-6H PRN pain 10/23/23 07/16/24 History mg-250 mg-65 mg tablet (Excedrin Extra Strength) multivit-minerals- folic acid 400 1 tab PO DAILY 10/23/23 [...] Yes HPI HPI Chief Complaint: fu Details: [address], is a 58 M who presents to [...] ear or mastoid pain, tinnitus, balance problems, nosebleed/epistaxi s, nasal congestion, headache(s), neck pain or sore [...] of harmi (more content not included)... Normal [facility] CBC W/Diff, Automatedon 11-0 Absolute Lymph 1.27 X10 3/uL Normal 0.83-4.51 [facility] Comment on above: Performed By: #### L 100.0100, L500.4050, L500.4100 #### [facility] [address] [place], [address] Absolute Neut 4.3 X10 3/uL Normal 2.0-7.7 [facility] Comment on above: Performed By: #### L 100.0100, L500.4050, L500.4100 #### [facility] [address] [place], [address] Basophils/100 WBC (Bld) 0.5 % Normal 0-1 [facility] Comment on above: Performed By: #### L 100.0100, L500.4050, L500.4100 #### [facility] [address] [place], [address] Eosinophils/100 WBC (Bld) 0.8 % Normal 0-5 [facility] Comment on above: Performed By: #### L 100.0100, L500.4050, L500.4100 #### [facility] [address] [place], [address] Erythrocyte distribution width (RBC) [Ratio] 12.4 % Normal 11.6-14.6 [facility] Comment on above: Performed By: #### L 100.0100, L500.4050, L500.4100 #### [facility] [address] [place], [address] Hematocrit (Bld) [Volume fraction] 48.7 % Normal 40-54 [facility] Comment on above: Performed By: #### L 100.0100, L500.4050, L500.4100 #### [facility] [address] [place], [address] Hemoglobin (Bld) [Mass/Vol] 16.9 g/dL High 13.0-16.5 [facility] Comment on above: Performed By: #### L 100.0100, L500.4050, L500.4100 #### [facility] [address] [place], [address] IG% 0.500 Normal 0.0-0.9 [facility] Comment on above: Result Comment: IG% - Immature Granulocytes (promyelocytes, myelocytes and metamyelocytes) > 1% indicates that a LEFT SHIFT is Present. Performed By: #### L 100.0100, L500.4050, L500.4100 #### [facility] [address] [place], [address] Lymphocytes/100 WBC (Bld) 20.8 % Normal 19-41 [facility] Comment on above: Performed By: #### L 100.0100, L500.4050, L500.4100 #### [facility] [address] [place], [address] MCH (RBC) [Entitic mass] 29.1 pg Normal 27.0-32.0 [facility] Comment on above: Performed By: #### L 100.0100, L500.4050, L500.4100 #### [facility] [address] [place], [address] MCHC (RBC) [Mass/Vol] 34.7 g/dL Normal 32-36 [facility] Comment on above: Performed By: #### L 100.0100, L500.4050, L500.4100 #### [facility] [address] [place], [address] MCV (RBC) [Entitic vol] 84.0 fL Normal 80-94 [facility] Comment on above: Performed By: #### L 100.0100, L500.4050, L500.4100 #### [facility] [address] [place], [address] Monocytes/100 WBC (Bld) 7.7 % Normal 0-10 [facility] Comment on above: Performed By: #### L 100.0100, L500.4050, L500.4100 #### [facility] [address] [place], [address] Neutrophils/100 WBC (Bld) 69.7 % Normal 47-70 [facility] Comment on above: Performed By: #### L 100.0100, L500.4050, L500.4100 #### [facility] [address] [place], [address] Nucleated RBC (Bld) [#/Vol] 0 10*3/uL Normal 0-5 [facility] Comment on above: Performed By: #### L 100.0100, L500.4050, L500.4100 #### [facility] [address] [place], [address] Platelet mean volume (Bld) [Entitic vol] 9.4 fL Normal 6.2-12.0 [facility] Comment on above: Performed By: #### L 100.0100, L500.4050, L500.4100 #### [facility] [address] [place], [address] Platelets (Bld) [#/Vol] 213 10*3/uL Normal 150-450 [facility] Comment on above: Performed By: #### L 100.0100, L500.4050, L500.4100 #### [facility] [address] [place], [address] RBC (Bld) [#/Vol] 5.80 10*6/uL Normal 4.6-6.2 [facility] Comment on above: Performed By: #### L 100.0100, L500.4050, L500.4100 #### [facility] [address] [place], [address] RDW SD 37.0 fl Normal 35.1-43.9 [facility] Comment on above: Performed By: #### L 100.0100, L500.4050, L500.4100 #### [facility] [address] [place], [address] WBC (Bld) [#/Vol] 6.1 10*3/uL Normal 4.4-11.0 [facility] Comment on above: Performed By: #### L 100.0100, L500.4050, L500.4100 #### [facility] [address] [place], [address] Comprehensive Metabolic Prof [facility] 01-30-2024 Albumin [Mass/Vol] 4.2 g/dL Normal 3.2-5.0 [facility] Comment on above: Performed By: #### L 100.0100, L500.4050, L500.4100 #### [facility] [address] [place], [address] Albumin/Globulin [Mass ratio] 1.2 {ratio} Normal 0.9-2.4 [facility] Comment on above: Performed By: #### L 100.0100, L500.4050, L500.4100 #### [facility] [address] [place], [address] ALK P 62 U/L Normal 45-117 [facility] Comment on above: Performed By: #### L 100.0100, L500.4050, L500.4100 #### [facility] [address] [place], [address] ALT [Catalytic activity/Vol] 49 U/L Normal 16-61 [facility] Comment on above: Performed By: #### L 100.0100, L500.4050, L500.4100 #### [facility] [address] [place], [address] AST [Catalytic activity/Vol] 26 U/L Normal 15-37 [facility] Comment on above: Performed By: #### L 100.0100, L500.4050, L500.4100 #### [facility] [address] [place], [address] Bilirubin [Mass/Vol] 1.00 mg/dL Normal 0.20-1.00 [facility] Comment on above: Result Comment: For patients on eltrombopag therapy, use of Dimension [place] TBIL is not recommended. Performed By: #### L 100.0100, L500.4050, L500.4100 #### [facility] [address] [place], [address] BUN/CRE 11.6 RATIO Normal 10-20 [facility] Comment on above: Performed By: #### L 100.0100, L500.4050, L500.4100 #### [facility] [address] [place], [address] CA,Total 9.4 mg/dL Normal 8.5-10.1 [facility] Comment on above: Performed By: #### L 100.0100, L500.4050, L500.4100 #### [facility] [address] [place], [address] Chloride [Moles/Vol] 104 mmol/L Normal 98-107 [facility] Comment on above: Performed By: #### L 100.0100, L500.4050, L500.4100 #### [facility] [address] [place], [address] CO2 [Moles/Vol] 30.0 mmol/L Normal 21.0-32.0 [facility] Comment on above: Performed By: #### L 100.0100, L500.4050, L500.4100 #### [facility] [address] [place], [address] Creatinine [Mass/Vol] 0.95 mg/dL Normal 0.70-1.30 [facility] Comment on above: Result Comment: The validity of the calculated GFR GFRAA in patients over 70 years has not been determined. Clinical correlation is essential. Performed By: #### L 100.0100, L500.4050, L500.4100 #### [facility] [address] [place], [address] EST GFR - AA 105 mL/min Normal >60 [facility] Comment on above: Result Comment: Afri can [place] GFR Calc Performed By: #### L 100.0100, L500.4050, L500.4100 #### [facility] [address] [place], [address] GAP 3 Low 5-15 [facility] Comment on above: Performed By: #### L 100.0100, L500.4050, L500.4100 #### [facility] [address] [place], [address] GFR/1.73 sq M.predicted among non-blacks MDRD (S/P/Bld) [Vol rate/Area] 87 mL/min/{1.73_m2} Normal >60 [facility] Comment on above: Result Comment: Non- GFR Calc Performed By: #### L 100.0100, L500.4050, L500.4100 #### [facility] [address] [place], [address] Globulin (S) [Mass/Vol] 3.5 g/dL Normal 2.2-4.2 [facility] Comment on above: Performed By: #### L 100.0100, L500.4050, L500.4100 #### [facility] [address] [place], [address] Glucose [Mass/Vol] 101 mg/dL Normal 74-106 [facility] Comment on above: Result Comment: Fast ing Glucose result from 100 to 125 mg/dL suggests IMPAIRED HOMEOSTASIS per A.D.A. criteria. Performed By: #### L 100.0100, L500.4050, L500.4100 #### [facility] [address] [place], [address] Potassium [Moles/Vol] 4.8 mmol/L Normal 3.5-5.1 [facility] Comment on above: Performed By: #### L 100.0100, L500.4050, L500.4100 #### [facility] [address] [place], [address] Sodium [Moles/Vol] 137 mmol/L Normal 136-145 [facility] Comment on above: Performed By: #### L 100.0100, L500.4050, L500.4100 #### [facility] [address] [place], [address] T PROT 7.7 g/dL Normal 6.4-8.2 [facility] Comment on above: Performed By: #### L 100.0100, L500.4050, L500.4100 #### [facility] [address] [place], [address] Urea nitrogen [Mass/Vol] 11 mg/dL Normal 7-18 [facility] Comment on above: Performed By: #### L 100.0100, L500.4050, L500.4100 #### [facility] [address] [place], [address] Internal Medicine Office Vis iton 01-30-2024 Internal Medicine Office Visit [facility] [address] [place], [place] [address] OFFICE VISIT Date of Service: 01/30/24 MR#: [id number] Acct: [id number] Name: [address] Rep #: [id number] : 1965 Provider: Dr. Peter chauhan MD Age/Sex: 58/M Location[place] [facility] Status: Signed Intake Vital Signs 10/23/23 11:30 [...] Delivery Method room air Intake Visit Reasons: RISK MGR EST CARE PPW SENT Chief Complaint: RISK MGR ESTABLISH CARE Is patient in pain?: Yes (BILATERAL THUMB ) Pain scale (1-10): 1 Allergies codeine Allergy (Verified 01/30/24 13:05) Vomiting Environmental Allergies: Uncoded Allergy (Verified 01/30/24 13:05) Other Medications ???Medication ???Instructions ???Recorded ???Confirmed ???Type ascorbic acid (vitamin C) 500 mg 500 mg PO DAILY 10/23/23 01/30/24 History tablet aspirin-acetaminop hen-caffeine 250 1 tab PO Q4-6H PRN pain 10/23/23 01/30/24 History mg-250 mg-65 mg tablet (Excedrin Extra Strength) multivit-minerals- folic acid 400 1 tab PO DAILY 10/23/23 [...] at home: Yes HPI HPI Chief Complaint: RISK MGR ESTABLISH CARE Details: [address], is a 58 M who presents to [...] ear or mastoid pain, tinnitus, balance problems, nosebleed/epistaxi s, nasal congestion, nasal discharge, headache(s), neck pain [...] pain, levin (more content not included)... Normal [facility] Lipid Profileon 01-30-2024 Cholesterol [Mass/Vol] 148 mg/dL Normal 200 [facility] Comment on above: Result Comment: <200 mg/dL Desirable 200-240 mg/dL Borderline >240 mg/dL High Risk Performed By: #### L 100.0100, L500.4050, L500.4100 #### [facility] [address] [place], [address] Cholesterol in HDL [Mass/Vol] 57 mg/dL Normal [facility] Comment on above: Result Comment: The drugs N-Acetylcysteine and Metamizole may falsely depress this assay. Reference Range HDL <40 mg/dL Low HDL Cholesterol HDL >or= 60 mg/dL High HDL Cholesterol Performed By: #### L 100.0100, L500.4050, L500.4100 #### [facility] [address] [place], [address] Cholesterol in LDL [Mass/Vol] 79 mg/dL Normal 0-130 [facility] Comment on above: Performed By: #### L 100.0100, L500.4050, L500.4100 #### [facility] [address] [place], [address] Cholesterol in VLDL [Mass/Vol] 12 mg/dL Normal 5-40 [facility] Comment on above: Performed By: #### L 100.0100, L500.4050, L500.4100 #### [facility] [address] [place], [address] Triglyceride [Mass/Vol] 61 mg/dL Normal [facility] Comment on above: Result Comment: The drugs N-Acetylcysteine and Metamizole may falsely depress this assay. Serum Triglycerides Reference Interval Normal <150 mg/dL Borderline high 150 - 199 mg/dL High 200 - 499 mg/dL Very High > or = 500 mg/dL Performed By: #### L 100.0100, L500.4050, L500.4100 #### [facility] [address] [place], [address] Office Visit: UC: mark hahn 01-31-2017 Documentation of current medications (procedure) Done Invalid Interpretation Code [facility] Work Phone: Fall risk assessment No Invalid Interpretation Code [facility] Work Phone: Rapid strep test Negative Invalid Interpretation Code [facility] Work Phone: Tobacco use HS Former smoker Invalid Interpretation Code [facility] Work Phone: Vital Signs Date Time Vital Sign Value Performing Clinician Francescai jazmin 01-14-2025 11:02-0400 Body height 177.[address] Peter Burris MD Work Phone: [facility] 01-14-2025 11:02-0400 Body mass index (BMI) [Ratio] 28 kg/m2 Dr. Peter Burris MD Work Phone: [facility] 01-14-2025 11:02-0400 Body temperature 97.4 [degF] Dr. Peter Burris MD Work Phone: [facility] 01-14-2025 11:02-0400 Body weight 88.[address] Peter Burris MD Work Phone: [facility] 01-14-2025 11:02-0400 Diastolic blood pressure 80 mm[Hg] Dr. Peter Burris MD Work Phone: [facility] 01-14-2025 11:02-0400 Heart rate 74 /min Dr. Peter Burris MD Work Phone: [facility] 01-14-2025 11:02-0400 Respiratory rate 16 /min Dr. Peter Burris MD Work Phone: [facility] 01-14-2025 11:02-0400 SaO2% (BldA) [Mass fraction] 97 % Dr. Peter Burris MD Work Phone: [facility] 01-14-2025 11:02-0400 Systolic blood pressure 138 mm[Hg] Dr. Peter Burris MD Work Phone: [facility] 01-31-2017 12:16-0400 BMI (Body Mass Index) 26.58 kg/m2 Porfirio BAL [facility] Work Phone: 01-31-2017 12:16-0400 Body Temperature 98 [degF] Porfirio [facility] Work Phone: 01-31-2017 12:16-0400 BP Diastolic 86 mm[Hg] Porfirio BAL [facility] Work Phone: 01-31-2017 12:16-0400 BP Systolic 128 mm[Hg] Porfirio Richardson MALLY [facility] Work Phone: 01-31-2017 12:16-0400 Height 180.34 cm Porfirio Richardson MALLY [facility] Work Phone: 01-31-2017 12:16-0400 Pulse (Heart Rate) 71 /min Porfirio Dylan BAL [facility] Work Phone: 01-31-2017 12:16-0400 Respiratory Rate 14 /min Porfirio Richardson MALLY [facility] Work Phone: 01-31-2017 12:16-0400 Weight 86.46 kg Porfirio Richardson MALLY [facility] Work Phone: Encounters Encounter Date Encounter Type Care Provider Facility Start: 01-27-2025 Encounter for genera l adult medical examination without abnormal findings Hussain BAL [facility] Start: 01-14-2025 Patient encounter procedure Hussain BAL -Laboratory Work Phone: Start: 01-14-2025 End: 01-14-2025 Patient encounter procedure Hussain BAL -[facility] Work Phone: Start: 01-14-2025 End: 01-14-2025 Patient encounter status Hussain BAL [facility] Start: 01-14-2025 End: 01-14-[address] Peter Burris MD Work Phone: -[facility] Start: 01-14-2025 End: 01-14-2025 ambulatory [facility] Facility:[facility] Start: 07-16-2024 End: 07-16-2024 ambulatory [facility] Facility[place] Start: 01-30-[address] Emilia Burris MD Work Phone: [facility] Start: 01-30-2024 End: 01-30-2024 ambulatory [facility] Facility:[facility] Start: 01-30-2024 End: 11-01-2024 ambulatory [facility] Facility:[facility] Procedures Date Procedure Procedure Detail Performing Clinician Start: 01-31-2017 End: 01-31-2017 Iaadiadoo streptococcus group a Porfirio BAL Work Phone: Plan of Treatment Date Care Activity Detail Author Start: 01-31-2017 End: 01-31-2017 Streptococcus.beta-hemol ytic [Presence] in Throat by Organism specific culture *Culture, R/O Strep A Swab [facility] Work Phone: Start: 01-31-2017 End: 01-31-2017 Appointment Appointment [facility] Work Phone: Payers Date Payer Category Payer Self-pay 2023 Unknown [id number] 2023 Unknown [id number] Unknown [id number] [id number] Unknown [id number] 2.16.8 [id number] Unknown [id number] 2.16.8 [id number] Unknown [id number] 2.16.8 [id number] Unknown [id number] 2.16.8 [id number] Social History Date Type Detail Facility Start: [facility] Sex Male [facility] Start: 1965 Sex Assigned At Male [facility] Progress note 01-14-2025 Note Date & Type Note Facility 01-14-[address] [facility] Evaluation note Note Date & Type Note Facility Evaluation note Diagnosis Onset Date Resolution Elevated blood pressure reading acute January 14 10:45am Preventative health care acute January 14 10:45am Prostate cancer screening acute January 14 10:45am [place] [facility] Work Phone: Progress note Note Date & Type Note Facility Progress note Note Date/Time January 14, 2025 11:53am [facility] [address] [place], [place] [address] OFFICE VISIT Date of Service: 01/14/25 MR#: [id number] Acct: [id number] Name: [address] Rep #: [id number] : 1965 Provider: MALLY Simmons Age/Sex: 59/M Location[place] [facility] Status: Signed Intake Vital Signs 07/16/24 09:19 01/14/25 11:02 Height 5 ft 10 in 5 ft 10 in Weight: 196 lb 4 oz 195 lb 4 oz BMI 28.1 28.0 BP 132/78 H 138/80 H Blood Pressure Location Lt brachial Lt brachial Position Sitting Sitting Respiration 14 16 Pulse 73 74 Pulse Source Monitor Monitor Temp 96 F L 97.4 F L Temp Source Temporal Temporal Pulse Oximetry (%) 95 97 Oxygen Delivery Method room air room air Intake Visit Reasons: Wellness Chief Complaint: fu [employer] Work[employer] Required: No Accompanied by: Self Is patient in pain?: No Allergies codeine Allergy (Verified 01/14/25 10:52) Vomiting Environmental Allergies: Uncoded Allergy (Verified 01/14/25 10:52) Other Medications ?Medication ?Instructions ?Recorded ?Confirmed ?Type ascorbic acid (vitamin C) 500 mg 500 mg PO DAILY 10/2201/14/25 History tablet yakdtcm-sgatnhprdmrtd-xvvsivrx 250 1 tab PO Q4-6H PRN pain 10/23/23 01/14/25 History mg-250 mg-65 mg tablet (Excedrin Extra Strength) ayfunodw-mmuzqjvk-ipdsq acid 400 1 tab PO DAILY 01/14/25 History mcg-vit K 20 mcg-lycop 300 mcg tablet (One-A-Day Men's Multivitamin) FLAX SEED PO DAILY 01/30/24 01/14/25 H istory tadalafil 5 mg tablet (Cialis) 5 mg PO QDAY 01/30/24 1 History 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 Not currently taking any medications He has some minor seasonal allergies There is family history of cancers in the family (males and females). He had 2 uncles with prostate Cancer. No nicotine use (he smoked but quit 20 years ago) He does consume coffee (couple cups a day) He does drink ETOH (a few drinks periodically) He does get regular exercise running on treadmill. He also gets a lot of steps in daily (tries to walk also a couple days a week) He does have a healthy diet eating a lot of fruits and vegetables. He avoids junk food for the most part He does not see eye doctor. He states that he does use readers. Has not had recent changes He does see dentist regularly He is UTD with colonoscopy. (recommended every 5 years) PSA has been done previously He believes he is UTD with immunizations. He does not get flu shot as 3 timesin a row he got very sick after getting the flu shot ROS Const Constitutional: No body ache, excessive sweating, fatigue, fever(s), frequent falls, headache(s), snoring, weakness, weight change, sleep problems or change in appetite Eyes Eyes: No blurry vision, change in vision, eye pain or Light sensitivity ENT ENT: No abnormal hearing, ear or mastoid pain, tinnitus, nasal congestion, headache(s), neck pain or sore throat Resp Respiratory: No cough, shortness of breath, snoring or wheezing Cardio Cardiology: No chest pain at rest, chest pain with exertion, excessive sweating,shortness of breath, dyspnea on exertion, lightheadedness, orthopnea or palpitations Gastro GI: No abdominal pain, change in bowel habits, constipation, cramping, diarrhea,nausea/dyspepsia or vomiting Genitourinary Male: No burning urination, painful urination, urinary incontinence, urinary frequency or blood in urine Musc Musculoskeletal: No abnormal gait, joint pain, back pain, limited range of motion, neck pain, numbness, stiffness, tingling or Arthritis Skin Skin: No dry skin, redness, lesions, itchy eyes, rash or wounds Neuro Neurology: No abnormal gait, abnormal hearing, abnormal speech, dizziness, weakness, frequent falls, headache(s), memory loss, numbness or tingling Psych Psychiatric: No anxiety, No change in appetite, No depression, No memory loss and No Thoughts of harming yourself/Others Endo Endocrine: No cold intolerance, excessive sweating, fatigue, flushing, heat intolerance, increased thirst/drinking, increased hunger or weight change Aller/Imm Allergy/Immunologic: No itchy eyes, seasonal allergy symptoms, hives or wheezing Alfred/Lymp Hematologic/Lymphatic: No easy bleeding, easy bruising or enlarged lymph nodes Exam Const General: cooperative, healthy appearing, comfortable and no acute distress Nutritional Appearance: average body habitus Orientation: alert, awake and oriented x3 Limitations: mental status not altered [facility] Head: normocephalic and atraumatic Ears: hearing grossly normal bilaterally, TM's normal bilaterally and EAC's normal Nose: external nose normal and nares normal Face and sinus: normal facial exam Mouth: oropharynx normal and moist mucous membranes Teeth and gingiva: dentition normal and multiple restorations Throat: posterior oropharynx normal Eyes Alignment and Position: alignment normal and position normal Periorbital: periorbital findings normal Pupils: PERRL Neck Neck: supple and nontender Neck mass: No Lymphatic: no lymphadenopathy noted Resp Effort & Inspection: normal respiratory effort, able to speak in complete sentences and symmetric chest movement Auscultation: Bilateral: Clear to Auscultation Cardio Rate: regular rate Rhythm: regular rhythm Heart Sounds: S1 normal and S2 normal Pulses: radial pulses present bilaterally 2+ GI Inspection: non-distended Auscultation: normal bowel sounds Palpation: soft, no guarding and nontender Skin Rashes: no rashes Neuro General: patient alert, patient awake, patient oriented x3, gait normal and moves all extremities Cognition: normal cognition Speech: speech normal Gait: normal gait Extrem General: no edema Psych Appearance: grossly normal Mental Status: mental status grossly normal Mood: congruent mood Affect: normal affect Speech and Movement: speech and movement normal Attitude: cooperative Coding Level of Care Code Off vis,est,prev 40-64yrs Diagnoses Preventative health care Z00.00 Elevated blood pressure reading R03.0 Prostate cancer screening Z12.5 Assessment and Plan Assessment and Plan (1) Preventative health care: Status: Acute Plan: Patient presents the office today for wellness exam. This is a healthy 59-year-old male with no significant past medical history. He does have a history of stomach ulcers a very long time ago. He occasionally has had some elevated blood pressure readings in the past. Otherwise patient does a good jobof getting regular exercise as well as has good dietary intake. He does stay up-to-date with immunizations as far as he is knows (he does not get annual flu shots as in the past his flu shots have caused him to be sick from them and has happened multiple times in a row). Patient does stay up to date with his age/gender appropriate screenings. He did have a PSA a year ago and has had colonoscopy screenings. At this time patient has no symptoms or no concerns or complaints. He is feeling well. He sleeps well. (2) Elevated blood pressure reading: Status: Acute Plan: Blood pressure today was a little bit up at 138. Apparently the past he has taken time where he for several weeks checked his blood pressure and kept a log of these things. Apparently that had show that blood pressure overall was well-controlled and therefore has not been on medication. I still recommend that he periodically be checking this just to make sure were not missing out on these slowly elevating. If he is seeing consistent numbers in the 140s systolically or consistent numbers in the 90s diastolically then he needs to notify us and consider medication. In the meantime he does need to continue with diet and lifestyle applications. He needs to monitor and/really cut back and eliminate salt/sodium. He does drink a lot of coffee and therefore should consider cutting back on the coffee a little bit or going to half. He needs drink plentyof water. Continue regular exercise. (3) Prostate cancer screening: Status: Acute Plan: Patient did have a PSA done on 01/19/2024. We discussed that insurances really want this to be 365 days. He would like to get his other labs for his work donetoday. Once he has these done we will go ahead and add the PSA on there and he can have this done after the of this month. I would recommend doing this especially with family history of both uncles having prostate cancer. This note was generated with [employer] software. It may contain incorrectwords, spelling, and punctuation that were not noted in checking the note beforesigning. Orders: Orders CBC W/Diff, Automated Today Z00.00 - Encounter for general adult medical examination without abnormal findings Comprehensive Metabolic Profil Today Z00.00 - Encounter for general adult medical examination without abnormal findings Lipid Profile Today Z00.00 - Encounter for general adult medical examination without abnormal findings Plan Details Follow Up: 1 Year 01/14/25 1221 <Electronically signed by Hussain BAL> Date _ Hussain BAL Cosigner Signature: Date (if applicable) CC: ~ [facility] Work Phone: Reason for referral (narrative) Note Date & Type Note Facility Reason for referral (narrative) No reason for referral information available [facility] Work Phone: Chief Complaint and Reason for Visit Chief Complaint Admit Date Wellness January 14, 2025 1 0:45am E ORDERS January 14, 2025 1 2:15pm Reason for Visit Admit Date Elevated blood pressure reading January 14, 2025 10:45am Preventative health care January 14, 2 025 10:45am Prostate cancer screening January 14, 2025 10:45am Family History No Family History Records Found Relationship Condition Age at Onset Recorded Date/T yolis aunt Malignant neoplasm of colon Unknown Malignant neoplasm of breast Unknown Malignant neoplasm Unknown mother Diverticulitis Unknown Malignant neoplasm of lung Unknown Anemia Unknown Anxiety Unknown Depression Unknown Cardiac disease Unknown Hypertension Unknown Mental disorder Unknown Psychiatric care Unknown Disorder of respiratory system Unknown Seizure Unknown Attempted suicide Unknown Peptic ulcer Unknown brother Diverticulitis Unknown Asthma Unknown Diabetes mellitus Unknown grandmother Malignant neoplasm of brain Unknown uncle Malignant neoplasm of prostate Unknown grandfather Alcoholism Unknown Summary Purpose Advance Directives No Advanced Directives Records Found Additional Source Comments Care Teams (unrecognized sec tion and content) Team Status: Active Member Role/Relationship Status Dates Dr. Ken Downs DO Primary care physician Activ e Dr. Peter Burris MD Primary care physician Activ e Team Status: Inactive Member Role/Relationship Status Dates MALLY Brown Attending physician Active S tart: January 14, 2025 End: January 14, 2025 Dr. Peter Burris MD Primary care physician Activ e Start: January 14, 2025 End: January 14, 2025 Dr. Peter Burris MD Referring Provider Active Start: January 14, 2025 End: January 14, 2025 Team Status: Active Member Role/Relationship Status Dates Dr. Peter Burris MD Primary care physician Activ e Start: January 14, 2025 MALLY Brown Attending physician Active S tart: January 14, 2025 MALLY Brown Referring Provider Active St art: January 14, 2025 Goals (unrecognized section and content) Goals may be documented in a n alternate section (unrecognized sect ion and content) No Status Records Found INFORMATION SOURCE (unrecogn ized section and content) DATE CREATED AUTHOR 01/29/[address] [facility] FOR RECORDS PERTAINING TO PATIENTS WHO [...] BE BASED ON THE PRIMARY CLINICAL RECORDS. [employer] [facility] provides no warranty or guarantee of the accuracy or completeness of information in this document.
[2025-03-11 18:09] LABS: PSA,Total - Annual Screen 3.27 ng/mL (0.02-4.00)
== END | disposition home or self-care (01) ==
LOC: LAB 17:05
PROVIDERS: PCP Internal Medicine; Referring Provider Urology; Visit Provider Urology
DX: Z12.5 Encounter for screening for malignant neoplasm of prostate (principal)
CPT/HCPCS: 36415; 84153; G0103